=== PATIENT | female | born 1985 | race Caucasian/White ===

== ENCOUNTER 2022-10-10 10:00 | Observation (INO) | payer OTHER ==
[2022-10-10] MEDS ORDERED: NALOXONE 0.4 MG/ML 1 ML VIAL IVP PRN (10:11)
[2022-10-10] MEDS ORDERED: cefTRIAXone IN SWFI 1,000 MG/10 ML SYRINGE IVP STA (10:12)
--- NOTE | 2022-10-10 10:15 | ED ---
General Adult HPI - General Chief complaint: Overdose Stated complaint: Overdose Time Seen by Provider: 10/10/22 10:00 Source: patient, RN notes reviewed, old records reviewed Mode of arrival: EMS - History of Present Illness Initial comments: This is a 37-year-old female who presents emergency Department from [facility]. Patient was there get off heroin however patient had decreased responsiveness she was arousable and protecting her airway but she immediately fall back to sleep. Patient denies doing heroin recently. EMS did not give her any Narcan nor did the facility. Patient also complains of right first toe infection. Patient denies any fever chills per patient denies any abdominal pain patient denies any chest pain difficulty breathing shortness of breath. Patient denies any nausea vomiting. - Related Data Home Medications Medication Instructions Recorded Confirmed Unable To Assess [Unable to Assess] 10/10/22 10/10/22 Allergies Allergy/AdvReac Type Severity Reaction Status Date / Time Unable to Assess Allergy Verified 10/10/22 11:52 Review of Systems ROS Statement: Those systems with pertinent positive or pertinent negative responses have been documented in the HPI. ROS Other: All systems not noted in ROS Statement are negative. Past Medical History Past Medical History: Unable to Obtain History of Any Multi-Drug Resistant Organisms: Unobtainable Past Surgical History: Unable to Obtain Past Psychological History: Unable to Obtain Smoking Status: Unknown if ever smoked Past Alcohol Use History: Unable to Obtain Past Drug Use History: Unable to Obtain General Exam - General Exam Comments Initial Comments: GENERAL: Patient is well-developed and well-nourished. Patient is nontoxic and well- hydrated and is in no acute distress. Patient is very fatigued ENT: Neck is soft and supple. No significant lymphadenopathy is noted. Oropharynx is clear. Moist mucous membranes. Neck has full range of motion without eliciting any pain. EYES: The sclera were anicteric and conjunctiva were pink and moist. Extraocular movements were intact and pupils were equal round and reactive to light. Eyelids were unremarkable. PULMONARY: Unlabored respirations. Good breath sounds bilaterally. No audible rales rhonchi or wheezing was noted. CARDIOVASCULAR: There is a regular rate and rhythm without any murmurs gallops or rubs. ABDOMEN: Soft and nontender with normal bowel sounds. SKIN: Patient has a ruptured paronychia on the left first toe is tender to palpation. Patient also has a small abrasion that looks mildly infected with erythema around it but no fluctuance. This lesion is on the left lower lateral leg NEUROLOGIC: Patient is alert and oriented x3. Cranial nerves II through XII are grossly intact. Motor and sensory are also intact. Normal speech, volume and content. Symmetrical smile. MUSCULOSKELETAL: Normal extremities with adequate strength and full range of motion. No lower extremity swelling or edema. No calf tenderness. LYMPHATICS: No significant lymphadenopathy is noted PSYCHIATRIC: Difficult to assess secondary to the patient's decreased responsiveness Course Vital Signs 10/10/22 10/10/22 10/10/22 10:02 10:18 10:22 Temperature 97.6 F Pulse Rate 61 77 Respiratory 17 14 17 Rate Blood Pressure 87/64 90/56 O2 Sat by Pulse 100 95 Oximetry 10/10/22 10/10/22 12:43 13:53 Temperature Pulse Rate 66 Respiratory 16 18 Rate Blood Pressure 122/79 O2 Sat by Pulse 97 Oximetry Medical Decision Making - Medical Decision Making EKG as interpreted by myself and shows a sinus rhythm at 60 bpm MI interval 160 QRS is 92 QT interval 445 QTC is 446. Patient's EKG shows no ST segment elevation or depression. Was pt. sent in by a medical professional or institution (, PA, LICENSED SALES PRODUCER, urgent care, hospital, or fdc...) When possible be specific @ -Patient was sent in by [facility] Did you speak to anyone other than the patient for history (EMS, parent, family, police, friend...)? What history was obtained from this source @ -EMS gave all of the history Did you review nursing and triage notes (agree or disagree)? Why? @ -I reviewed and agree with nursing and triage notes Were old charts reviewed (outside hosp., previous admission, EMS record, old EKG, old radiological studies, urgent care reports/EKG's, fdc records)? Report findings @ -No old charts were reviewed Differential Diagnosis (chest pain, altered mental status, abdominal pain women, abdominal pain men, vaginal bleeding, weakness, fever, dyspnea, syncope, headache, dizziness, GI bleed, back pain, seizure, CVA, palpatations, mental health, musculoskeletal)? @ -Differential Altered Mental Status: Hypoglycemia, DKA, hypercapnia, ETOH, overdose, CO poisoning, trauma, myxedema coma, HTN encephalopathy, infection, encephalitis, psychosis, intercranial hemorrhage, hepatic encephalopathy, meningitis, CVA, this is not meant to be an all-inclusive list EKG interpreted by me (3pts min.). @ -As above X-rays interpreted by me (1pt min.). @ -Chest x-ray shows no acute abnormality CT interpreted by me (1pt min.). @ -Either brain shows no acute abnormality U/S interpreted by me (1pt. min.). @ -None done What testing was considered but not performed or refused? (CT, X-rays, U/S, labs)? Why? @ -None What meds were considered but not given or refused? Why? @ -None Did you discuss the management of the patient with other professionals (professionals i.e. , PA, LICENSED SALES PRODUCER, lab, RT, psych nurse, social services, fence setter, teacher, hospital chief financial officer, case reviewer)? Give summary @ -I spoke with [facility] agreed to admit the patient Was smoking cessation discussed for >3mins.? @ -No Was critical care preformed (if so, how long)? @ -No Were there social determinants of health that impacted care today? How? (Homelessness, low income, unemployed, alcoholism, drug addiction, transportation, low edu. Level, literacy, decrease access to med. care, usp, rehab)? @ -No Was there de-escalation of care discussed even if they declined (Discuss DNR or withdrawal of care, Hospice)? DNR status @ -No What co-morbidities impacted this encounter? (DM, HTN, Smoking, COPD, CAD, Cancer, CVA, ARF, Chemo, Hep., AIDS, mental health diagnosis, sleep apnea, morbid obesity)? @ -None Was patient admitted / discharged? Hospital course, mention meds given and route , prescriptions, significant lab abnormalities, going to OR and other pertinent info. @ -The patient came in it was always arousable with sternal rub. Narcan was given and the patient's woke up and was much more agitated. Patient did vomit times one and patient was given Zofran. Lab work came back and showed the patient had opiates and cocaine and methamphetamine and benzodiazepines on board. Patient's CT of the brain was normal. Patient remained very tired throughout her ED stay however she was easily arousable and continued to maintain her airway throughout her duration emergency department. I spoke with [facility] hospitalist agreed to admit the patient admitted the patient and wrote admitting orders Undiagnosed new problem with uncertain prognosis? @ -No Drug Therapy requiring intensive monitoring for toxicity (Heparin, Nitro, Insulin, Cardizem)? @ -No Were any procedures done? @ -No Diagnosis/symptom? @ -Polypharmacy Acute, or Chronic, or Acute on Chronic? @ -Acute Uncomplicated (without systemic symptoms) or Complicated (systemic symptoms)? @ -Complicated Side effects of treatment? @ -No Exacerbation, Progression, or Severe Exacerbation? @ -No Poses a threat to life or bodily function? How? (Chest pain, USA, IA, pneumonia, PE, COPD, DKA, ARF, appy, cholecystitis, CVA, Diverticulitis, Homicidal, Suicidal, threat to staff... and all critical care pts) @ -Yes continued abuse of multiple illegal substances could potentially kill the patient Diagnosis/symptom? @ -Altered mental status Acute, or Chronic, or Acute on Chronic? @ -Acute Uncomplicated (without systemic symptoms) or Complicated (systemic symptoms)? @ -default Side effects of treatment? @ -none Exacerbation, Progression, or Severe Exacerbation] @ -no Poses a threat to life or bodily function? @ -no Diagnosis/symptom? @ -Paronychia Acute, or Chronic, or Acute on Chronic? @ -Acute Uncomplicated (without systemic symptoms) or Complicated (systemic symptoms)? @ -Uncomplicated Side effects of treatment? @ -none Exacerbation, Progression, or Severe Exacerbation] @ -no Poses a threat to life or bodily function? @ -no - Lab Data Result diagrams: 10/10/22 10:22 10/10/22 10:22 Lab Results 10/10/22 10/10/22 10/10/22 Range/Units 10:22 10:22 11:41 WBC 7.1 (3.8-10.6) k/uL RBC 4.09 (3.80-5.40) m/uL Hgb 12.4 (11.4-16.0) gm/dL Hct 35.3 (34.0-46.0) % MCV 86.1 (80.0-100.0) fL MCH 30.4 (25.0-35.0) pg MCHC 35.3 (31.0-37.0) g/dL RDW 12.6 (11.5-15.5) % Plt Count 219 (150-450) k/uL MPV 7.7 Neutrophils % 44 % Lymphocytes % 41 % Monocytes % 4 % Eosinophils % 8 % Basophils % 1 % Neutrophils # 3.1 (1.3-7.7) k/uL Lymphocytes # 2.9 (1.0-4.8) k/uL Monocytes # 0.3 (0-1.0) k/uL Eosinophils # 0.6 (0-0.7) k/uL Basophils # 0.0 (0-0.2) k/uL Sodium 141 (137-145) mmol/L Potassium 3.4 L (3.5-5.1) mmol/L Chloride 103 (98-107) mmol/L Carbon Dioxide 31 H (22-30) mmol/L Anion Gap 7 mmol/L BUN 6 L (7-17) mg/dL Creatinine 0.82 (0.52-1.04) mg/dL Est GFR (CKD-EPI)AfAm >90 (>60 ml/min/1.73 sqM) Est GFR (CKD-EPI)NonAf >90 (>60 ml/min/1.73 sqM) Glucose 99 (74-99) mg/dL Calcium 9.2 (8.4-10.2) mg/dL Total Bilirubin 0.5 (0.2-1.3) mg/dL AST 34 (14-36) U/L ALT 23 (4-34) U/L Alkaline Phosphatase 51 (38-126) U/L Total Protein 6.8 (6.3-8.2) g/dL Albumin 3.9 (3.5-5.0) g/dL Urine Opiates Screen Detected H (NotDetected) Ur Oxycodone Screen Not Detected (NotDetected) Urine Methadone Screen Not Detected (NotDetected) Ur Propoxyphene Screen Not Detected (NotDetected) Ur Barbiturates Screen Not Detected (NotDetected) U Tricyclic Antidepress Not Detected (NotDetected) Ur Phencyclidine Scrn Not Detected (NotDetected) Ur Amphetamines Screen Not Detected (NotDetected) U Methamphetamines Scrn Detected H (NotDetected) U Benzodiazepines Scrn Detected H (NotDetected) Urine Cocaine Screen Detected H (NotDetected) U Marijuana (THC) Screen Not Detected (NotDetected) Serum Alcohol mg/dL 10/10/22 Range/Units 13:55 WBC (3.8-10.6) k/uL RBC (3.80-5.40) m/uL Hgb (11.4-16.0) gm/dL Hct (34.0-46.0) % MCV (80.0-100.0) fL MCH (25.0-35.0) pg MCHC (31.0-37.0) g/dL RDW (11.5-15.5) % Plt Count (150-450) k/uL MPV Neutrophils % % Lymphocytes % % Monocytes % % Eosinophils % % Basophils % % Neutrophils # (1.3-7.7) k/uL Lymphocytes # (1.0-4.8) k/uL Monocytes # (0-1.0) k/uL Eosinophils # (0-0.7) k/uL Basophils # (0-0.2) k/uL Sodium (137-145) mmol/L Potassium (3.5-5.1) mmol/L Chloride (98-107) mmol/L Carbon Dioxide (22-30) mmol/L Anion Gap mmol/L BUN (7-17) mg/dL Creatinine (0.52-1.04) mg/dL Est GFR (CKD-EPI)AfAm (>60 ml/min/1.73 sqM) Est GFR (CKD-EPI)NonAf (>60 ml/min/1.73 sqM) Glucose (74-99) mg/dL Calcium (8.4-10.2) mg/dL Total Bilirubin (0.2-1.3) mg/dL AST (14-36) U/L ALT (4-34) U/L Alkaline Phosphatase (38-126) U/L Total Protein (6.3-8.2) g/dL Albumin (3.5-5.0) g/dL Urine Opiates Screen (NotDetected) Ur Oxycodone Screen (NotDetected) Urine Methadone Screen (NotDetected) Ur Propoxyphene Screen (NotDetected) Ur Barbiturates Screen (NotDetected) U Tricyclic Antidepress (NotDetected) Ur Phencyclidine Scrn (NotDetected) Ur Amphetamines Screen (NotDetected) U Methamphetamines Scrn (NotDetected) U Benzodiazepines Scrn (NotDetected) Urine Cocaine Screen (NotDetected) U Marijuana (THC) Screen (NotDetected) Serum Alcohol <10 mg/dL Disposition Clinical Impression: Paronychia, Polypharmacy, Altered mental status [facility] Referrals: None,Stated [Primary Care Provider] - 1-2 days Time of Disposition: 14:40
[2022-10-10] MEDS ORDERED: SODIUM CHLORIDE 0.9% 1,000 ML IV ONE ×2 (10:25→14:41)
[2022-10-10] MEDS ORDERED: ONDANSETRON 4 MG/2 ML VIAL IVP STA (10:25)
[2022-10-10 10:29] LABS: Basophils % (A) 1 %; Eosinophils # (A) 0.6 k/uL (0-0.7); Eosinophils % (A) 8 %; HCT 35.3 % (34.0-46.0); HGB 12.4 gm/dL (11.4-16.0); Lymphocytes # (A) 2.9 k/uL (1.0-4.8); Lymphocytes % (A) 41 %; MCH 30.4 pg (25.0-35.0); MCHC 35.3 g/dL (31.0-37.0); MCV 86.1 fL (80.0-100.0); Mean Platelet Volume 7.7; Monocytes # (A) 0.3 k/uL (0-1.0); Monocytes % (A) 4 %; Neutrophils # (A) 3.1 k/uL (1.3-7.7); Neutrophils % (A) 44 %; Platelet Count 219 k/uL (150-450); RBC 4.09 m/uL (3.80-5.40); RDW 12.6 % (11.5-15.5); WBC 7.1 k/uL (3.8-10.6)
[2022-10-10 10:49] LABS: ALT 23 U/L (4-34); AST 34 U/L (14-36); African American GFR (CKD) >90 (>60 ml/min/1.73 sqM); Albumin 3.9 g/dL (3.5-5.0); Alkaline Phosphatase 51 U/L (38-126); Anion Gap 7 mmol/L; Blood Urea Nitrogen 6 mg/dL (7-17); Calcium 9.2 mg/dL (8.4-10.2); Carbon Dioxide 31 mmol/L (22-30); Chloride 103 mmol/L (98-107); Glucose 99 mg/dL (74-99); Non-African American GFR(CKD) >90 (>60 ml/min/1.73 sqM); Potassium 3.4 mmol/L (3.5-5.1); Sodium 141 mmol/L (137-145); Total Bilirubin 0.5 mg/dL (0.2-1.3); Total Protein 6.8 g/dL (6.3-8.2)
--- NOTE | 2022-10-10 11:03 | XR ---
EXAMINATION TYPE: XR chest 1V portable DATE OF EXAM: 10/10/2022 10:50 AM COMPARISON: None TECHNIQUE: XR chest 1V portable Portable AP radiograph of the chest. CLINICAL INDICATION:Female, 37 years old with history of Short of breath; FINDINGS: Lungs/Pleura: There is no evidence of pleural effusion, focal consolidation, or pneumothorax. Pulmonary vascularity: Unremarkable. Heart/mediastinum: Cardiomediastinal silhouette is unremarkable. Musculoskeletal: No acute osseous pathology. IMPRESSION: No acute cardiopulmonary disease/process.
[2022-10-10 12:09] LABS: Benzodiazepines Screen,Urine Detected (NotDetected); Cocaine Screen,Urine Detected (NotDetected); Opiate Screen,Urine Detected (NotDetected); Phencyclidine Screen,Urine Not Detected (NotDetected); Urn Cannabinoid Scrn Not Detected (NotDetected)
[2022-10-10 12:10] LABS: Amphetamine Screen,Urine Not Detected (NotDetected); Barbiturate Screen,Urine Not Detected (NotDetected); Methadone Screen, Urine Not Detected (NotDetected); Oxycodone Screen, Urine Not Detected (NotDetected); Tricyclic Antidepressant,Urine Not Detected (NotDetected)
[2022-10-10] MEDS ORDERED: NALOXONE 0.4 MG/ML 1 ML VIAL IVP STA (12:27)
--- NOTE | 2022-10-10 13:32 | CT ---
EXAMINATION TYPE: CT brain wo con CT DLP: 1039.4 mGycm, Automated exposure control for dose reduction was used. DATE OF EXAM: 10/10/2022 1:24 PM COMPARISON: None. CLINICAL INDICATION:Female, 37 years old with history of Altered mental status, Overdose TECHNIQUE: Brain: Multiple axial CT images of the brain were obtained without IV contrast. Coronal and sagittal reformats reviewed. FINDINGS: Brain: Extra-axial spaces: No abnormal extra-axial fluid collections. Ventricular system: Within normal limits Cerebral parenchyma: No acute intraparenchymal hemorrhage or mass effect. The faith-white junction is well differentiated. Cerebellum: Unremarkable. Mass effect: No evidence of midline shift. Intracranial vasculature: unremarkable Soft tissues: Normal. Calvarium/osseous structures: No depressed skull fracture. Paranasal sinuses and mastoid air cells: The mastoid air cells are clear. Mild mucosal thickening of the right ethmoid sinus and maxillary sinus. Visualized orbits: Orbital contents are intact. IMPRESSION: No acute intracranial process.
[2022-10-10] MEDS ORDERED: Potassium Replacement Protocol 1 EACH MISC MISCELLANE PRN (20:38)
[2022-10-10] MEDS: POTASSIUM CHLORIDE 10 MEQ in WATER FOR INJECTION 1 100ML.BAG IVPB SCH (23:49)
[2022-10-10] MEDS: SULFAMETHOX-TMP 800-160MG 1 EACH TAB PO SCH (23:50)
[2022-10-10] MEDS: CEPHALEXIN 500 MG CAP PO SCH ×2 (23:51→23:52)
[2022-10-11] MEDS: POTASSIUM CHLORIDE 10 MEQ in WATER FOR INJECTION 1 100ML.BAG IVPB SCH ×3 (00:20→00:54)
[2022-10-11] MEDS: POTASSIUM CHLORIDE ER 20 MEQ TAB.ER PO SCH ×4 (00:56→12:32)
[2022-10-11] MEDS: ACETAMINOPHEN TAB 500 MG TAB PO PRN (02:13)
[2022-10-11] MEDS: SULFAMETHOX-TMP 800-160MG 1 EACH TAB PO SCH (09:19)
[2022-10-11] MEDS: CEPHALEXIN 500 MG CAP PO SCH ×3 (09:19→17:26)
--- NOTE | 2022-10-11 20:56 | P.HPIM ---
History of Present Illness H&P Date: 10/10/22 Chief Complaint: Polysubstance overdose 37-year-old female who presents emergency Department from [facility]. Patient was there get off heroin however patient had decreased responsiveness she was arousable and protecting her airway but she immediately fall back to sleep. Patient denies doing heroin recently. EMS did not give her any Narcan nor did the facility. Patient also complains of right first toe infection. Patient denies any fever chills per patient denies any abdominal pain patient denies any chest pain difficulty breathing shortness of breath. Patient denies any nausea vomiting. In the ED patient was found to be arousable with sternal rub. Narcan was given and the patient's woke up and was much more agitated. Patient did vomit times one and patient was given Zofran. Lab work came back and showed the patient had opiates and cocaine and methamphetamine and benzodiazepines on board. Patient's CT of the brain was normal. Patient remained very tired throughout her ED stay however she was easily arousable and continued to maintain her airway throughout her duration emergency department. Review of Systems REVIEW OF SYSTEMS: CONSTITUTIONAL: No fever, no malaise, no fatigue. HEENT: No recent visual problems or hearing problems. Denied any sore throat. CARDIOVASCULAR: No chest pain, orthopnea, PND, no palpitations, no syncope. PULMONARY: No shortness of breath, no cough, no hemoptysis. GASTROINTESTINAL: No diarrhea, no nausea, no vomiting, no abdominal pain. NEUROLOGICAL: No headaches, no weakness, no numbness. HEMATOLOGICAL: Denies any bleeding or petechiae. GENITOURINARY: Denies any burning micturition, frequency, or urgency. MUSCULOSKELETAL/RHEUMATOLOGICAL: Denies any joint pain, swelling, or any muscle pain. ENDOCRINE: Denies any polyuria or polydipsia. The rest of the 14-point review of systems is negative. Past Medical History Past Medical History: Unable to Obtain History of Any Multi-Drug Resistant Organisms: Unobtainable Past Surgical History: Unable to Obtain Past Psychological History: Unable to Obtain Smoking Status: Unknown if ever smoked Past Alcohol Use History: Unable to Obtain Past Drug Use History: Unable to Obtain Medications and Allergies Home Medications Medication Instructions Recorded Confirmed Type Cephalexin [Keflex] 500 mg PO DIRECTED 10/10/22 10/10/22 History Allergies Allergy/AdvReac Type Severity Reaction Status Date / Time No Known Allergies Allergy Verified 10/10/22 18:53 Physical Exam Vitals: Vital Signs Temp Pulse Resp BP Pulse Ox 10/10/22 13:53 66 18 122/79 97 10/10/22 12:43 16 10/10/22 10:22 77 17 90/56 95 10/10/22 10:18 14 10/10/22 10:02 97.6 F 61 17 87/64 100 Intake and Output 10/09/22 10/10/22 10/10/22 22:59 06:59 14:59 Other: Weight 68.039 kg - Constitutional General appearance: Present: average body habitus, cooperative, no acute distress - EENT Eyes: Present: anicteric sclerae, EOMI, PERRLA, normal appearance ENT: Present: hearing grossly normal, normal oropharynx Ears: bilateral: normal - Neck Neck: Present: normal ROM. Absent: lymphadenopathy, rigidity, thyromegaly Carotids: negative: bruit present Thyroid: bilateral: normal size, negative: enlarged, nodule - Respiratory Respiratory: bilateral: CTA, negative: rales, rhonchi, wheezing - Cardiovascular Rhythm: regular Heart sounds: normal: S1, S2 Abnormal Heart Sounds: Absent: systolic murmur, diastolic murmur - Gastrointestinal General gastrointestinal: Present: normal bowel sounds, soft. Absent: d istended, organomegaly, tenderness - Genitourinary Genitourinary Comment(s): deferred - Integumentary Integumentary: Present: normal turgor. Absent: jaundiced, rash, ulcer - Neurologic Neurologic: Present: CNII-XII intact. Absent: focal deficits - Musculoskeletal Musculoskeletal: Present: gait normal, strength equal bilaterally - Psychiatric Psychiatric: Present: A&O x's 3, appropriate affect, intact judgment & insight Results CBC & Chem 7: 10/10/22 10:22 10/11/22 04:53 Labs: Abnormal Lab Results - Last 24 Hours (Table) 10/10/22 10/10/22 Range/Units 10:22 11:41 Potassium 3.4 L (3.5-5.1) mmol/L Carbon Dioxide 31 H (22-30) mmol/L BUN 6 L (7-17) mg/dL Urine Opiates Screen Detected H (NotDetected) U Methamphetamines Scrn Detected H (NotDetected) U Benzodiazepines Scrn Detected H (NotDetected) Urine Cocaine Screen Detected H (NotDetected) Assessment and Plan Assessment: 1. Altered mental status -- Substance abuse; urine drug screen is positive for opiates, methamphetamine, benzodiazepines and cocaine - Patient has been placed on IV fluids; CIWA protocol with Ativan -- Continue with neuro checks -- Plan to consult neurology if mental status doesn't improve 2. Hypokalemia; potassium at 3.4 in ED; supplemented with oral potassium; we will monitor electrolytes closely and supplement as needed 3. Pain redness related toe/ paronychia; patient received 1 dose of IV Rocephin and has been placed on Keflex 500 mg 4 times a day DVT prophylaxis; SCDs CODE STATUS; full code
[2022-10-11] MEDS: ONDANSETRON 4 MG/2 ML VIAL IVP PRN (21:26)
[2022-10-12] MEDS: SULFAMETHOX-TMP 800-160MG 1 EACH TAB PO SCH ×3 (00:15→20:58)
[2022-10-12] MEDS: FAMOTIDINE 20 MG TAB PO SCH ×3 (00:15→20:58)
[2022-10-12] MEDS: ACETAMINOPHEN TAB 500 MG TAB PO PRN (00:15)
[2022-10-12] MEDS: DIPHENOX-ATROP 2.5-0.025 MG 1 EACH TAB PO PRN ×3 (00:16→18:47)
[2022-10-12] MEDS: CEPHALEXIN 500 MG CAP PO SCH ×5 (00:16→20:58)
[2022-10-12] MEDS: MELATONIN 5 MG TABLET PO SCH ×2 (00:21→20:58)
[2022-10-12] MEDS: POTASSIUM CHLORIDE ER 20 MEQ TAB.ER PO SCH ×2 (03:05→04:21)
--- NOTE | 2022-10-12 11:28 | P.PN ---
Subjective Progress Note Date: 10/11/22 37-year-old female who presents emergency Department from [facility]. Patient was there get off heroin however patient had decreased responsiveness she was arousable and protecting her airway but she immediately fall back to sleep. Patient denies doing heroin recently. EMS did not give her any Narcan nor did the facility. Patient also complains of right first toe infection. Patient denies any fever chills per patient denies any abdominal pain patient denies any chest pain difficulty breathing shortness of breath. Patient denies any nausea vomiting. In the ED patient was found to be arousable with sternal rub. Narcan was given and the patient's woke up and was much more agitated. Patient did vomit times one and patient was given Zofran. Lab work came back and showed the patient had opiates and cocaine and methamphetamine and benzodiazepines on board. Patient's CT of the brain was normal. Patient remained very tired throughout her ED stay however she was easily arousable and continued to maintain her airway throughout her duration emergency department. Objective - Vital Signs Vital signs: Vital Signs Temp 98.5 F 10/11/22 11:43 Pulse 75 10/11/22 11:43 Resp 20 10/11/22 11:43 BP 104/65 10/11/22 11:43 Pulse Ox 96 10/11/22 11:43 FiO2 Intake & Output 10/10/22 10/11/22 10/11/22 18:59 06:59 18:59 Weight 68.039 kg Other: Voiding Method Toilet Toilet # Voids 0 2 - Exam General appearance: Present: average body habitus, cooperative, no acute distress Eyes: Present: anicteric sclerae, EOMI, PERRLA, normal appearance Neck: Present: normal ROM. Absent: lymphadenopathy, rigidity, thyromegaly Respiratory: bilateral: CTA, negative: rales, rhonchi, wheezing Cardiovascular: regular; normal: S1, S2 Gastrointestinal: normal bowel sounds, soft. Absent: distended, organomegaly, tenderness Genitourinary Comment(s): deferred Integumentary: Present: normal turgor. Absent: jaundiced, rash, ulcer Neurologic: Present: CNII-XII intact. Absent: focal deficits Musculoskeletal: Present: gait normal, strength equal bilaterally Psychiatric: Present: A&O x's 3, appropriate affect, intact judgment & insight - Labs CBC & Chem 7: 10/10/22 10:22 10/11/22 22:27 Labs: Abnormal Lab Results - Last 24 Hours (Table) 10/11/22 Range/Units 04:53 Potassium 3.4 L (3.5-5.1) mmol/L Assessment and Plan Assessment: 1. Altered mental status -- Substance abuse; urine drug screen is positive for opiates, methamphetamine, benzodiazepines and cocaine - Patient has been placed on IV fluids; CIWA protocol with Ativan -- Continue with neuro checks -- Plan to consult neurology if mental status doesn't improve 2. Hypokalemia; potassium at 3.4 in ED; supplemented with oral potassium; we will monitor electrolytes closely and supplement as needed 3. Pain redness related toe/ paronychia; patient received 1 dose of IV Rocephin and has been placed on Keflex 500 mg 4 times a day DVT prophylaxis; SCDs CODE STATUS; full code
[2022-10-12] MEDS: ONDANSETRON 4 MG/2 ML VIAL IVP PRN ×2 (11:33→16:14)
[2022-10-12 13:21] LABS: Basophils # (A) 0.03 X 10*3/uL (0.00-0.10); Basophils % (A) 0.4 %; Eosinophils # (A) 0.31 X 10*3/uL (0.04-0.35); Eosinophils % (A) 3.7 %; HCT 30.7 % (37.2-46.3); HGB 10.3 d/dL (12.0-15.0); Lymphocytes # (A) 3.52 X 10*3/uL (0.90-5.00); Lymphocytes % (A) 42.1 %; MCH 29.5 pg (27.0-32.0); MCHC 33.6 d/dL (32.0-37.0); Mean Platelet Volume 10.4 FL (9.5-12.2); Monocytes # (A) 0.42 X 10*3/uL (0.20-1.00); NRBC Per 100 WBC 0 X 10*3/uL (0.00-0.01); Neutrophils # (A) 4.07 X 10*3/uL (1.80-7.70); Neutrophils % (A) 48.6 %; Platelet Count 214 X 10*3/uL (140-440); RBC 3.49 X 10*6/uL (4.10-5.20); RDW 12.2 % (11.5-14.5); WBC 8.37 X 10*3/uL (4.50-10.00)
[2022-10-12 13:29] LABS: BUN/Creat Ratio <5.00 Ratio (12.00-20.00); Blood Urea Nitrogen <3.5 mg/dL (9.0-27.0); Calcium 8.7 mg/dL (8.7-10.3); Carbon Dioxide 23.7 mmol/L (21.6-31.8); Chloride 111 mmol/L (96-109); Glucose 86 mg/dL (70-110); Potassium 3.7 mmol/L (3.5-5.5); Sodium 143 mmol/L (135-145)
[2022-10-12] MEDS ORDERED: IOPAMIDOL CONTRAST (ORAL USE) VIAL PO PRN (15:53)
--- NOTE | 2022-10-12 18:12 | CT ---
EXAMINATION TYPE: CT abdomen pelvis wo/w con CT DLP: 1061.6 mGycm, Automated exposure control for dose reduction was used. DATE OF EXAM: 10/12/2022 6:02 PM COMPARISON: None CLINICAL INDICATION:Female, 37 years old with history of pelvic mass; Rectal mass x6mo. TECHNIQUE: Axial CT of the abdomen and pelvis with and without IV contrast. Sagittal and coronal ref ormats were created on a separate workstation. Contrast used:100 ml mL of Isovue 300 with IV Contrast, (none if empty) Oral contrast used: with Oral Contrast (none if empty) FINDINGS: LOWER CHEST: Unremarkable ABDOMEN LIVER: Focal fatty infiltration adjacent to the falciform ligament in segment IVb GALLBLADDER AND BILE DUCTS: The gallbladder surgically absent. PANCREAS: Unremarkable. SPLEEN: Unremarkable. ADRENAL GLANDS: Unremarkable. KIDNEYS AND URETERS: No evidence of hydronephrosis or renal calculus. The ureters are unremarkable. PELVIS BLADDER: Unremarkable REPRODUCTIVE: Unremarkable. ABDOMEN & PELVIS STOMACH AND BOWEL: No evidence of bowel obstruction. No evidence of mass in the abdomen pelvis or rig ht rectal region. PERITONEUM/RETROPERITONEUM: No evidence of pneumoperitoneum or free fluid. VASCULATURE: No evidence of aortic aneurysm. MUSCULOSKELETAL: No acute osseous abnormalities LYMPH NODES: No gross evidence for lymphadenopathy. SOFT TISSUE/ABDOMINAL WALL: Unremarkable IMPRESSION: No evidence for rectal mass, no acute intra-abdominal process.
--- NOTE | 2022-10-12 20:37 | P.PN ---
Subjective Progress Note Date: 10/12/22 37-year-old female who presents emergency Department from [facility]. Patient was there get off heroin however patient had decreased responsiveness she was arousable and protecting her airway but she immediately fall back to sleep. Patient denies doing heroin recently. EMS did not give her any Narcan nor did the facility. Patient also complains of right first toe infection. Patient denies any fever chills per patient denies any abdominal pain patient denies any chest pain difficulty breathing shortness of breath. Patient denies any nausea vomiting. In the ED patient was found to be arousable with sternal rub. Narcan was given and the patient's woke up and was much more agitated. Patient did vomit times one and patient was given Zofran. Lab work came back and showed the patient had opiates and cocaine and methamphetamine and benzodiazepines on board. Patient's CT of the brain was normal. Patient remained very tired throughout her ED stay however she was easily arousable and continued to maintain her airway throughout her duration emergency department. 10/12/2022 Patient is seen and evaluated and discussed with nursing staff; patient has been reporting that she feels like it is a mass in the pelvis which she needs to have back by her finger in her vagina before each bowel movement Vital signs are stable with temperature of 98, pulse 62, respiration 15 and and blood pressure 123/74 -- No abdominal or pelvic masses palpable on physical examination WBC of 8.3, hemoglobin of 10.3, sodium of 143, potassium 3.7, BUN/creatinine of 20.5/0.7 -- We will hold off on discharge and order a CT of the abdomen and pelvis with and without contrast Objective - Vital Signs Vital signs: Vital Signs Temp 98.7 F 10/12/22 12:00 Pulse 69 10/12/22 12:00 Resp 14 10/12/22 12:00 BP 115/74 10/12/22 12:00 Pulse Ox 100 10/12/22 12:00 FiO2 Intake & Output 10/12/22 10/12/22 10/13/22 06:59 18:59 06:59 Intake Total 1200 Balance 1200 Intake: Intake, IV Titration 1200 Amount Sodium Chloride 0.9% 1, 1200 000 ml @ 100 mls/hr IV . Q10H ONE Rx#:[id number] Other: Voiding Method Toilet Toilet # Voids 2 - Exam General appearance: Present: average body habitus, cooperative, no acute distress Eyes: Present: anicteric sclerae, EOMI, PERRLA, normal appearance Neck: Present: normal ROM. Absent: lymphadenopathy, rigidity, thyromegaly Respiratory: bilateral: CTA, negative: rales, rhonchi, wheezing Cardiovascular: regular; normal: S1, S2 Gastrointestinal: normal bowel sounds, soft. Absent: distended, organomegaly, tenderness Genitourinary Comment(s): deferred Integumentary: Present: normal turgor. Absent: jaundiced, rash, ulcer Neurologic: Present: CNII-XII intact. Absent: focal deficits Musculoskeletal: Present: gait normal, strength equal bilaterally Psychiatric: Present: A&O x's 3, appropriate affect, intact judgment & insight - Labs CBC & Chem 7: 10/12/22 07:20 10/12/22 07:20 Labs: Abnormal Lab Results - Last 24 Hours (Table) 10/12/22 10/12/22 Range/Units 07:20 07:20 RBC 3.49 L (4.10-5.20) X 10*6/uL Hgb 10.3 L (12.0-15.0) d/dL Hct 30.7 L (37.2-46.3) % Chloride 111 H (96-109) mmol/L BUN <3.5 L (9.0-27.0) mg/dL BUN/Creatinine Ratio <5.00 L (12.00-20.00) Ratio Assessment and Plan Assessment: 1. Altered mental status -- Substance abuse; urine drug screen is positive for opiates, methamphetamine, benzodiazepines and cocaine - Patient has been placed on IV fluids; CIWA protocol with Ativan -- Continue with neuro checks -- Plan to consult neurology if mental status doesn't improve 2. Hypokalemia; potassium at 3.4 in ED; supplemented with oral potassium; we will monitor electrolytes closely and supplement as needed 3. Pain redness related toe/ paronychia; patient received 1 dose of IV Rocephin and has been placed on Keflex 500 mg 4 times a day DVT prophylaxis; SCDs CODE STATUS; full code
[2022-10-13] MEDS: ONDANSETRON 4 MG/2 ML VIAL IVP PRN ×2 (02:12→08:30)
[2022-10-13] MEDS: DIPHENOX-ATROP 2.5-0.025 MG 1 EACH TAB PO PRN (02:18)
[2022-10-13] MEDS: CEPHALEXIN 500 MG CAP PO SCH ×2 (08:30→13:03)
[2022-10-13] MEDS: FAMOTIDINE 20 MG TAB PO SCH (08:30)
[2022-10-13] MEDS: SULFAMETHOX-TMP 800-160MG 1 EACH TAB PO SCH (08:30)
[2022-10-13 08:44] LABS: BUN/Creat Ratio <5.00 Ratio (12.00-20.00); Blood Urea Nitrogen <3.5 mg/dL (9.0-27.0); Calcium 8.9 mg/dL (8.7-10.3); Carbon Dioxide 23.3 mmol/L (21.6-31.8); Chloride 108 mmol/L (96-109); Glucose 101 mg/dL (70-110); Potassium 3.4 mmol/L (3.5-5.5); Sodium 141 mmol/L (135-145)
[2022-10-13 12:04] VITALS: BP 100/62; PULSE 71; RESP 18; TEMP 98
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
== END 2022-10-13 14:22 | disposition home or self-care (01) ==
LOC: EC 10:00 → INTOOBSV 14:41 → 4SSUR 14:41 → 5NMEDONC 16:50 → UNDODISIN 10-13 14:22
PROVIDERS: ADMIT Hospitalist; ATTEND Hospitalist
DX: R41.82 Altered mental status, unspecified (principal); F11.10 Opioid abuse, uncomplicated; F13.10 Sedative, hypnotic or anxiolytic abuse, uncomplicated; F14.10 Cocaine abuse, uncomplicated; F15.10 Other stimulant abuse, uncomplicated; L03.032 Cellulitis of left toe; E87.6 Hypokalemia; K62.89 Other specified diseases of anus and rectum
CPT/HCPCS: 96376 ×4; 96361 ×2; 96374; 96375; 99285; 36415; 93005; 80053; 80048 ×2; 84132; 85025 ×2; 80306; 71045; 70450; 74178; G0378 ×5; G0480; J2310; J2405 ×4; J0696; Q9967; 80320

== ENCOUNTER 2024-02-05 11:58 | Inpatient (IN) | payer OTHER ==
[2024-02-05 12:38] LABS: Basophils % (A) 0 %; Eosinophils # (A) 0.1 k/uL (0-0.7); Eosinophils % (A) 1 %; HCT 36.2 % (34.0-46.0); HGB 12.5 gm/dL (11.4-16.0); Lymphocytes # (A) 1.5 k/uL (1.0-4.8); Lymphocytes % (A) 19 %; MCH 29.8 pg (25.0-35.0); MCHC 34.4 g/dL (31.0-37.0); MCV 86.4 fL (80.0-100.0); Mean Platelet Volume 7.1; Monocytes # (A) 0.3 k/uL (0-1.0); Monocytes % (A) 3 %; Neutrophils % (A) 75 %; Platelet Count 274 k/uL (150-450); RBC 4.19 m/uL (3.80-5.40); RDW 12.5 % (11.5-15.5); WBC 7.9 k/uL (3.8-10.6)
[2024-02-05 12:47] LABS: Lactic Acid, Venous 1.2 mmol/L (0.7-2.0)
[2024-02-05] MEDS: SODIUM CHLORIDE 0.9% 1,000 ML IV ONE (12:47)
[2024-02-05 12:48] LABS: ALT 16 U/L (4-34); AST 21 U/L (14-36); Acetaminophen <10.0 ug/mL; African American GFR (CKD) >90 (>60 ml/min/1.73 sqM); Albumin 4.1 g/dL (3.5-5.0); Alcohol <10 mg/dL; Alkaline Phosphatase 76 U/L (38-126); Anion Gap 6 mmol/L; Blood Urea Nitrogen 9 mg/dL (7-17); Calcium 9.1 mg/dL (8.4-10.2); Carbon Dioxide 20 mmol/L (22-30); Chloride 111 mmol/L (98-107); Glucose 130 mg/dL (74-99); Non-African American GFR(CKD) >90 (>60 ml/min/1.73 sqM); Potassium 3.9 mmol/L (3.5-5.1); Salicylate <1.0 mg/dL; Sodium 137 mmol/L (137-145); Total Bilirubin 0.7 mg/dL (0.2-1.3); Total Protein 7.1 g/dL (6.3-8.2)
[2024-02-05] MEDS: LORazepam 2 MG/ML INJ IV STA (12:48)
--- NOTE | 2024-02-05 12:50 | ED ---
General Adult HPI - General Chief complaint: Recheck/Abnormal Lab/Rx Stated complaint: swelling Time Seen by Provider: 02/05/24 12:10 Source: patient, RN notes reviewed, old records reviewed Mode of arrival: EMS Limitations: no limitations - History of Present Illness Initial comments: Is a 38-year-old female who presents emergency department for somewhat altered mental status. Reportedly may have a history of seizure disorder. Is currently at [facility] for benzodiazepine and heroin abuse. States she feels like her tongue and face are swollen. No noted swelling on exam. She is slow to respond to questions. States this has happened previously when she was told she was having a seizure. She is not on any seizure medications on a regular basis. Does have a history of the polysubstance abuse. Denies any other acute complaints at this time other than the mild fatigue and slow response to questions. Presents for further evaluation. Denies chest pain or shortness of breath. Denies abdominal pain, nausea, vomiting.[facility] reportedly is concerned that she may have taken a illicit substance. - Related Data Home Medications Medication Instructions Recorded Confirmed Acetaminophen Tab [Tylenol] 650 mg PO Q4H 02/05/24 02/05/24 Calcium Phos/D3/Magnesium/Zinc 1 tab PO TID PRN 02/05/24 02/05/24 [Zvsxlud-Ttt-Voum-Vitamin D3] Chlorpheniramine Maleate 4 mg PO Q4H PRN 02/05/24 02/05/24 [Chlor-Trimeton] Docusate [Colace] 100 mg PO BID PRN 02/05/24 02/05/24 Hyoscyamine Sulfate [Levsin] 0.125 mg PO QID PRN 02/05/24 02/05/24 Ibuprofen [Motrin Ib] 600 mg PO Q6H PRN 02/05/24 02/05/24 Loperamide [Imodium] 4 mg PO QID PRN 02/05/24 02/05/24 Multivitamins, Thera [Multivitamin 1 tab PO DAILY 02/05/24 02/05/24 (formulary)] Mylanta 30 ml PO Q4H PRN 02/05/24 02/05/24 Thiamine [Vitamin B-1] 100 mg PO DAILY 02/05/24 02/05/24 cloNIDine HCL [Catapres] 0.1 mg PO Q4H PRN 02/05/24 02/05/24 ondansetron HCL [Zofran] 8 mg PO Q6H PRN 02/05/24 02/05/24 traZODone HCL [Desyrel] 50 - 150 mg PO HS PRN 02/05/24 02/05/24 Allergies Allergy/AdvReac Type Severity Reaction Status Date / Time pineapple Allergy Unknown Verified 02/05/24 15:45 Review of Systems ROS Statement: Those systems with pertinent positive or pertinent negative responses have been documented in the HPI. Review of Systems: CONST: Denies fever EYES: Denies blurry vision ENT: Denies nasal congestion C/V: Denies Chest pain RESP: Denies shortness of breath GI: Denies abdominal pain : Denies dysuria SKIN: Denies rash. MSK: Denies joint pain. NEURO: Endorses weakness ROS Other: All systems not noted in ROS Statement are negative. Past Medical History Past Medical History: Unable to Obtain Additional Past Medical History / Comment(s): heroin addiction, also cocaine, meth, benzo and opiate abuse; hypotension, left great toe infection History of Any Multi-Drug Resistant Organisms: Unobtainable Past Surgical History: Unable to Obtain Additional Past Surgical History / Comment(s): x 3 Past Anesthesia/Blood Transfusion Reactions: No Reported Reaction Past Psychological History: Unable to Obtain Smoking Status: Unknown if ever smoked Past Alcohol Use History: Unable to Obtain Past Drug Use History: Unable to Obtain General Exam - General Exam Comments Initial Comments: General: Appears in no acute distress. HEAD: Normal with no signs of head trauma. EYES: PERRLA, EOMI, conjunctiva normal, no discharge. 3 mm and equal bilaterally. ENT: Hearing grossly intact, normal oropharynx. RESPIRATORY: Clear breath sounds bilaterally. No wheezes, rales, or rhonchi. C/V: Regular rate and rhythm. S1 and S2 auscultated, no edema, peripheral pulses 2+ and intact throughout ABD: Abd is soft, nontender, nondistended EXT: Normal range of motion, no obvious deformity SKIN: No rashes or lesions observed on exposed skin. NEURO: Alert and oriented x 4. Cranial nerves II-XII intact. No focal sensory or strength deficits. Is slightly slow to respond to questions but is acting appropriately. NIH is 0. Limitations: no limitations Course Vital Signs 02/05/24 02/05/24 02/05/24 12:01 15:44 16:33 Temperature 98.7 F 99.9 F H Pulse Rate 84 49 L 50 L Respiratory 20 18 18 Rate Blood Pressure 142/84 112/87 132/78 O2 Sat by Pulse 99 98 98 Oximetry Medical Decision Making - Medical Decision Making Was pt. sent in by a medical professional or institution (, PA, STEREO EQUIPMENT INSTALLER, urgent care, hospital, or jail...) When possible be specific @ -Sent from [facility] for further evaluation. Did you speak to anyone other than the patient for history (EMS, parent, family, police, friend...)? What history was obtained from this source @ -No Did you review nursing and triage notes (agree or disagree)? Why? @ -I reviewed and agree with nursing and triage notes Were old charts reviewed (outside hosp., previous admission, EMS record, old EKG, old radiological studies, urgent care reports/EKG's, jail records)? Report findings @ -Reviewed paperwork from [facility] which did reveal that they are concerned that the patient may have taken an illicit substance. Differential Diagnosis (chest pain, altered mental status, abdominal pain women, abdominal pain men, vaginal bleeding, weakness, fever, dyspnea, syncope, headache, dizziness, GI bleed, back pain, seizure, CVA, palpatations, mental health, musculoskeletal)? @ -Differential Altered Mental Status: Hypoglycemia, DKA, hypercapnia, ETOH, overdose, CO poisoning, trauma, myxedema coma, HTN encephalopathy, infection, encephalitis, psychosis, intercranial hemorrhage, hepatic encephalopathy, meningitis, CVA, this is not meant to be an all-inclusive list EKG interpreted by me (3pts min.). @ -As above X-rays interpreted by me (1pt min.). @ -Chest x-ray reveals no obvious acute cardiopulmonary process. CT interpreted by me (1pt min.). @ -CT brain reveals no obvious acute intracranial process or injury. U/S interpreted by me (1pt. min.). @ -None done What testing was considered but not performed or refused? (CT, X-rays, U/S, labs)? Why? @ -None What meds were considered but not given or refused? Why? @ -None Did you discuss the management of the patient with other professionals (professionals i.e. , PA, STEREO EQUIPMENT INSTALLER, lab, RT, psych nurse, social media assistant, biomaterials engineer, teacher, correction officer supervisor, nurse outreach case manager)? Give summary @ -No Was smoking cessation discussed for >3mins.? @ -No Was critical care preformed (if so, how long)? @ -No Were there social determinants of health that impacted care today? How? (Homelessness, low income, unemployed, alcoholism, drug addiction, transportation, low edu. Level, literacy, decrease access to med. care, usp, rehab)? @ -No Was there de-escalation of care discussed even if they declined (Discuss DNR or withdrawal of care, Hospice)? DNR status @ -No What co-morbidities impacted this encounter? (DM, HTN, Smoking, COPD, CAD, Cancer, CVA, ARF, Chemo, Hep., AIDS, mental health diagnosis, sleep apnea, morbid obesity)? @ -Polysubstance abuse Was patient admitted / discharged? Hospital course, mention meds given and route, prescriptions, significant lab abnormalities, going to OR and other pertinent info. @ -Patient presents emergency department for altered mentation and slowed respond to questions. She presents from rehab who is concerned that she may have taken illicit substance at the facility. She denies this. She states she feels like her tongue and her face are swollen which on exam they are not. Is slower to respond to questions but otherwise acting appropriately. We will obtain general altered mental status workup. She was in agreement this plan. States she does have a history of seizures and she will be given a dose of IV fluids, IV Ativan, IV Keppra. Patient was in agreement this plan. EKG shows no signs of acute ischemia.Imaging returns unremarkable. Laboratory studies also returned unremarkable. Urinalysis is still pending. UDS is still pending. On reevaluation, patient is still slow to respond to questions but otherwise acting appropriately. As this appears to be below baseline, patient will be admitted to observation for neurology evaluation for altered mental status. She was in agreement this plan. Neurology consulted. Patient will be continued on home meds, as well as IV fluids. Undiagnosed new problem with uncertain prognosis? @ -No Drug Therapy requiring intensive monitoring for toxicity (Heparin, Nitro, Insulin, Cardizem)? @ -No Were any procedures done? @ -No Diagnosis/symptom? @ -Altered mental status Acute, or Chronic, or Acute on Chronic? @ -Acute Uncomplicated (without systemic symptoms) or Complicated (systemic symptoms)? @ -complicated Side effects of treatment? @ -None Exacerbation, Progression, or Severe Exacerbation] @ -No Poses a threat to life or bodily function? @ -Potentially, yes - Lab Data Result diagrams: 02/05/24 12:02/05/24 12: Lab Results 02/05/24 02/05/24 02/05/24 Range/Units 12: 12: 12: WBC 7.9 (3.8-10.6) k/uL RBC 4.19 (3.80-5.40) m/uL Hgb 12.5 (11.4-16.0) gm/dL Hct 36.2 (34.0-46.0) % MCV 86.4 (80.0-100.0) fL MCH 29.8 (25.0-35.0) pg MCHC 34.4 (31.0-37.0) g/dL RDW 12.5 (11.5-15.5) % Plt Count 274 (150-450) k/uL MPV 7.1 Neutrophils % 75 % Lymphocytes % 19 % Monocytes % 3 % Eosinophils % 1 % Basophils % 0 % Neutrophils # 6.0 (1.3-7.7) k/uL Lymphocytes # 1.5 (1.0-4.8) k/uL Monocytes # 0.3 (0-1.0) k/uL Eosinophils # 0.1 (0-0.7) k/uL Basophils # 0.0 (0-0.2) k/uL PT 11.0 (10.0-12.5) sec INR 1.0 (<1.2) APTT 27.3 (22.0-30.0) sec Sodium 137 (137-145) mmol/L Potassium 3.9 (3.5-5.1) mmol/L Chloride 111 H (98-107) mmol/L Carbon Dioxide 20 L (22-30) mmol/L Anion Gap 6 mmol/L BUN 9 (7-17) mg/dL Creatinine 0.68 (0.52-1.04) mg/dL Est GFR (CKD-EPI)AfAm >90 (>60 ml/min/1.73 sqM) Est GFR (CKD-EPI)NonAf >90 (>60 ml/min/1.73 sqM) Glucose 130 H (74-99) mg/dL Plasma Lactic Acid Hemal (0.7-2.0) mmol/L Calcium 9.1 (8.4-10.2) mg/dL Total Bilirubin 0.7 (0.2-1.3) mg/dL AST 21 (14-36) U/L ALT 16 (4-34) U/L Alkaline Phosphatase 76 (38-126) U/L Ammonia (<30) umol/L Total Protein 7.1 (6.3-8.2) g/dL Albumin 4.1 (3.5-5.0) g/dL Salicylates <1.0 mg/dL Acetaminophen <10.0 ug/mL Serum Alcohol <10 mg/dL 02/05/24 Range/Units 12:26 WBC (3.8-10.6) k/uL RBC (3.80-5.40) m/uL Hgb (11.4-16.0) gm/dL Hct (34.0-46.0) % MCV (80.0-100.0) fL MCH (25.0-35.0) pg MCHC (31.0-37.0) g/dL RDW (11.5-15.5) % Plt Count (150-450) k/uL MPV Neutrophils % % Lymphocytes % % Monocytes % % Eosinophils % % Basophils % % Neutrophils # (1.3-7.7) k/uL Lymphocytes # (1.0-4.8) k/uL Monocytes # (0-1.0) k/uL Eosinophils # (0-0.7) k/uL Basophils # (0-0.2) k/uL PT (10.0-12.5) sec INR (<1.2) APTT (22.0-30.0) sec Sodium (137-145) mmol/L Potassium (3.5-5.1) mmol/L Chloride (98-107) mmol/L Carbon Dioxide (22-30) mmol/L Anion Gap mmol/L BUN (7-17) mg/dL Creatinine (0.52-1.04) mg/dL Est GFR (CKD-EPI)AfAm (>60 ml/min/1.73 sqM) Est GFR (CKD-EPI)NonAf (>60 ml/min/1.73 sqM) Glucose (74-99) mg/dL Plasma Lactic Acid Hemal 1.2 (0.7-2.0) mmol/L Calcium (8.4-10.2) mg/dL Total Bilirubin (0.2-1.3) mg/dL AST (14-36) U/L ALT (4-34) U/L Alkaline Phosphatase (38-126) U/L Ammonia 14 (<30) umol/L Total Protein (6.3-8.2) g/dL Albumin (3.5-5.0) g/dL Salicylates mg/dL Acetaminophen ug/mL Serum Alcohol mg/dL - EKG Data -: EKG Interpreted by Me EKG Comments: 12-lead Electrocardiogram Interpretation Note EKG was reviewed and interpreted by myself. 12-lead ECG performed at 1244 is interpreted by me as revealing sinus bradycardia at a rate of 50 beats per minute. The axis is normal. MO interval is 145 ms, QRS duration is 85 ms, QTc is 430 ms.. There were no ST or T wave abnormalities to suggest myocardial ischemia or injury. R wave progression across the precordium was satisfactory. By my interpretation this EKG is non-diagnostic for acute ischemia. Disposition Clinical Impression: Altered mental status Disposition: ADMITTED IP TO THIS HOSP Condition: Stable Time of Disposition: 15:00
[2024-02-05 13:19] LABS: Partial Thromboplastin Time 27.3 sec (22.0-30.0)
--- NOTE | 2024-02-05 13:28 | CT ---
EXAMINATION TYPE: CT brain wo con CT DLP: 1096.4 mGycm, Automated exposure control for dose reduction was used. DATE OF EXAM: 02/05/2024 1:23 PM COMPARISON: Prior CT Brain from 10/10/2022. CLINICAL INDICATION:Female, 38 years old with history of Altered mental status, ams TECHNIQUE: Brain: Multiple axial CT images of the brain were obtained without IV contrast. . Coronal and sagitta l reformats reviewed. FINDINGS: Brain: Extra-axial spaces: No abnormal extra-axial fluid collections. Ventricular system: Within normal limits Cerebral parenchyma: No acute intraparenchymal hemorrhage or mass effect. The faith-white junction is well differentiated. Cerebellum: Unremarkable. Mass effect: No evidence of midline shift. Intracranial vasculature: unremarkable Soft tissues: Normal. Calvarium/osseous structures: No depressed skull fracture. Paranasal sinuses and mastoid air cells: Clear Visualized orbits: Orbital contents are intact. IMPRESSION: No acute intracranial process. [facility], , 02/05/2024 1:26 PM
[2024-02-05] MEDS: levETIRAcetam IV 500 MG/5 ML VIAL IVP STA (13:31)
--- NOTE | 2024-02-05 13:36 | XR ---
EXAMINATION TYPE: XR chest 2V DATE OF EXAM: 02/05/2024 1:24 PM COMPARISON: 10/10/2022 CLINICAL INDICATION: Female, 38 years old with history of altered mental status, , TECHNIQUE: AP and lateral views FINDINGS: Heart upper limits of normal in size. Hazy densities relating to overlying soft tissue. No violette cons olidation or pleural effusion seen. IMPRESSION: No definite acute process. [facility], , 02/05/2024 1:33 PM
[2024-02-05] MEDS ORDERED: NALOXONE 0.4 MG/ML 1 ML VIAL IV PRN (15:06)
[2024-02-05] MEDS ORDERED: CALCIUM CARB-VIT D 500 MG-5 MCG TAB PO PRN (15:43)
[2024-02-05] MEDS ORDERED: MAG HYDROX/AL HYDROX/SIMETH 30 ML CUP PO PRN (15:43)
[2024-02-05] MEDS ORDERED: LOPERAMIDE 2 MG CAP PO PRN (15:43)
[2024-02-05] MEDS ORDERED: ONDANSETRON 4 MG TAB PO PRN (15:43)
[2024-02-05] MEDS ORDERED: DOCUSATE 100 MG CAP PO PRN (15:43)
[2024-02-05] MEDS ORDERED: HYOSCYAMINE SULFATE 0.125 MG TAB PO PRN (15:43)
[2024-02-05] MEDS: SODIUM CHLORIDE 0.9% 1,000 ML IV STA (20:21)
[2024-02-05 21:16] LABS: Appearance,Urine Cloudy (Clear); Bacteria,Urine Few /hpf; Bilirubin,Urine Negative (Negative); Blood,Urine Moderate (Negative); Budding Yeast,Urine Occasional /hpf; Color,Urine Colorless; Glucose,Urine (UA) Negative (Negative); Ketones,Urine 1+ (Negative); Leukocyte Esterase,Urine Negative (Negative); Mucus,Urine Rare /hpf; Nitrite,Urine Positive (Negative); PH, Urine 6.5 (5.0-8.0); Protein,Urine Negative (Negative); RBC,Urine 1 /hpf (0-5); Specific Gravity,Urine 1.018 (1.001-1.035); Squamous Epithelial Cell,Urine 2 /hpf (0-4); Urobilinogen,Urine <2.0 mg/dL (<2.0); WBC,Urine 5 /hpf (0-5)
[2024-02-05 21:30] LABS: Amphetamine Screen,Urine Not Detected (NotDetected); Benzodiazepines Screen,Urine Detected (NotDetected); Cocaine Screen,Urine Not Detected (NotDetected); Opiate Screen,Urine Detected (NotDetected); Phencyclidine Screen,Urine Not Detected (NotDetected); Urn Cannabinoid Scrn Not Detected (NotDetected)
[2024-02-05 21:31] LABS: Barbiturate Screen,Urine Not Detected (NotDetected); Methadone Screen, Urine Not Detected (NotDetected); Oxycodone Screen, Urine Not Detected (NotDetected); Tricyclic Antidepressant,Urine Not Detected (NotDetected)
[2024-02-05] MEDS: ONDANSETRON 4 MG/2 ML VIAL IVP PRN (21:50)
--- NOTE | 2024-02-06 07:00 | P.CNNES ---
History of Present Illness Consult date: 02/06/24 Reason for Consult: History of drug use/abuse, seizure disorder with seizure at home. Chief complaint: "I had seizures and I missed my medicine at home." History of Present Illness: Ms. Paul is a 38-year-old female with history of hypotension, left toe infection, seizure disorder for which she takes Keppra at home, and multiple drug use/abuse, including heroin, cocaine, methamphetamine, benzodiazepines, and opiates. She was seen and is admitted to [facility] as of February 05, 2024 after she was transferred from [facility] where she was being treated for benzodiazepine and heroin abuse. She was stating at that time that her tongue and face were swollen which she states happens when she has a seizure. At this time in the emergency room she is slow to respond to questions and appears somewhat unreliable with her history. She does state that she has missed some of her medication recently. She also denies recent drug use except for "the day I came into the hospital." Noncontrast CT of the head on February 04 was negative as well as a chest x-ray. An EKG revealed bradycardia bradycardia at 50 bpm. Other labs include urinalysis with 5 white blood cells and positive nitrites as well as urine drug screen positive for opiates and benzodiazepines. Neurology has been consulted for further management recommendations. Review of Systems Constitutional: Reports as per HPI, Reports lethargy Cardiovascular: Reports as per HPI Respiratory: Reports as per HPI Gastrointestinal: Reports abdominal pain, Reports diarrhea Genitourinary: Reports dysmenorrhea Menstruation: Reports cycle variable Musculoskeletal: Reports low back pain Musculoskeletal: right: shoulder pain Integumentary: Reports unusual bruising Neurological: Reports as per HPI Psychiatric: Reports as per HPI Past Medical History Past Medical History: Unable to Obtain Additional Past Medical History / Comment(s): heroin addiction, also cocaine, meth, benzo and opiate abuse; hypotension, left great toe infection History of Any Multi-Drug Resistant Organisms: Unobtainable Past Surgical History: Unable to Obtain Additional Past Surgical History / Comment(s): x 3 Past Anesthesia/Blood Transfusion Reactions: No Reported Reaction Past Psychological History: Unable to Obtain Smoking Status: Unknown if ever smoked Past Alcohol Use History: Unable to Obtain Past Drug Use History: Unable to Obtain Medications and Allergies Home Medications Medication Instructions Recorded Confirmed Type Acetaminophen Tab [Tylenol] 650 mg PO Q4H 11/29/24 11/29/24 History Calcium Phos/D3/Magnesium/Zinc 1 tab PO TID PRN 02/05/24 02/05/24 History [Wcvwiaj-Llr-Lsva-Vitamin D3] Chlorpheniramine Maleate 4 mg PO Q4H PRN 02/05/24 02/05/24 History [Chlor-Trimeton] Docusate [Colace] 100 mg PO BID PRN 02/05/24 02/05/24 History Hyoscyamine Sulfate [Levsin] 0.125 mg PO QID PRN 02/05/24 02/05/24 History Ibuprofen [Motrin Ib] 600 mg PO Q6H PRN 02/05/24 02/05/24 History Loperamide [Imodium] 4 mg PO QID PRN 02/05/24 02/05/24 History Multivitamins, Thera [Multivitamin 1 tab PO DAILY 02/05/24 02/05/24 History (formulary)] Mylanta 30 ml PO Q4H PRN 02/05/24 02/05/24 History Thiamine [Vitamin B-1] 100 mg PO DAILY 02/05/24 02/05/24 History cloNIDine HCL [Catapres] 0.1 mg PO Q4H PRN 02/05/24 02/05/24 History ondansetron HCL [Zofran] 8 mg PO Q6H PRN 02/05/24 02/05/24 History traZODone HCL [Desyrel] 50 - 150 mg PO HS PRN 02/05/24 02/05/24 History Allergies Allergy/AdvReac Type Severity Reaction Status Date / Time pineapple Allergy Unknown Verified 02/05/24 15:45 Physical Examination - Vital Signs Vital Signs: Vital Signs Temp Pulse Resp BP Pulse Ox 02/06/24 06:06 98.3 F 61 18 142/73 99 02/06/24 02:36 68 18 118/70 95 02/05/24 16:33 50 L 18 132/78 98 02/05/24 15:44 99.9 F H 49 L 18 112/87 98 02/05/24 12:01 98.7 F 84 20 142/84 99 Intake and Output 02/05/24 02/05/24 02/06/24 14:59 22:59 06:59 Other: Weight 68.039 kg Patient is slow to respond to questions. However she does follow simple commands and will answer some historical questions with brief sentences. Her affect appears depressed. - EENT EENT: PERRL - Respiratory Respiratory: lungs clear, normal breath sounds, no respiratory distress - Cardiovascular Cardiovascular: regular rate, no murmurs - Gastrointestinal Gastrointestinal: normoactive bowel sounds, non-tender - Integumentary Integumentary: normal - Neurologic Cranial nerve examination: PERRL, EOMI, VFF, V1/V2/V3 grossly intact, face symmetric, tongue midline, intact Sensorimotor examination: other (The patient has some effort limited weakness in her arms and legs bilaterally but is able to raise both arms as well as both legs with strength of approximately 4+ to 5- out of 5 given her volitional weakness.) Detailed sensory examination: intact Reflex and gait examination: other (Reflexes 1+ and symmetric in the arms and legs bilaterally with plantar responses downgoing bilaterally.) Results Noncontrast CT of the head from February 04 was read as negative and chest x-ray was read as negative. EKG is consistent with bradycardia 50 bpm. Other pertinent laboratories include urinalysis with 5 white blood cells moderate blood and positive nitrites. Urine drug screen was positive for opiates as well as benzodiazepines. - Laboratory Findings CBC and BMP: 02/05/24 12:26 02/05/24 12:26 Abnormal Lab Findings: Abnormal Labs 02/05/24 02/05/24 02/05/24 12:26 20:24 20:24 Chloride 111 H Carbon Dioxide 20 L Glucose 130 H Urine Appearance Cloudy H Urine Ketones 1+ H Urine Blood Moderate H Urine Nitrite Positive H Urine Bacteria Few H Urine Mucus Rare H Urine Yeast (Budding) Occasional H Urine Opiates Screen Detected H U Benzodiazepines Scrn Detected H Assessment and Plan Assessment: Ms. Paul is a 38-year-old female with history of seizure disorder for which she states she takes Keppra at home. She missed some doses recently and is being treated for benzodiazepine and heroin abuse. She may have suffered a seizure at the outlying hospital and is somewhat lethargic at this time. She is also nauseated. She has been loaded with Keppra 1000 mg x 1 in the emergency room and will continue on 500 mg every 12 hours of Keppra. Plan: 1. I will continue the patient on Keppra 500 mg p.o. every 12 hours. 2. I have not elected to perform an electroencephalogram at this time, as the patient has a known seizure disorder and has been off of medication. She will be monitored in house for seizure activity and if this is noted on the EEG may be performed as she is being managed with seizure medication at this time. 3. Neurology will continue to follow her in house to make further recommendations as needed. Time with Patient: Less than 30
[2024-02-06] MEDS: levETIRAcetam 500 MG TAB PO SCH (08:34)
[2024-02-06 09:31] LABS: Basophils # (A) 0.01 X 10*3/uL (0.00-0.10); Basophils % (A) 0.1 %; Eosinophils # (A) 0 X 10*3/uL (0.04-0.35); Eosinophils % (A) 0 %; HCT 35.7 % (37.2-46.3); HGB 12.4 g/dL (12.0-15.0); Lymphocytes # (A) 1.72 X 10*3/uL (0.90-5.00); Lymphocytes % (A) 14.9 %; MCH 29.5 pg (27.0-32.0); MCHC 34.7 g/dL (32.0-37.0); Mean Platelet Volume 10.3 FL (9.5-12.2); Monocytes # (A) 0.39 X 10*3/uL (0.20-1.00); Monocytes % (A) 3.4 %; NRBC Per 100 WBC 0 X 10*3/uL (0.00-0.01); Neutrophils # (A) 9.36 X 10*3/uL (1.80-7.70); Neutrophils % (A) 80.8 %; Platelet Count 276 X 10*3/uL (140-440); RDW 11.9 % (11.5-14.5); WBC 11.57 X 10*3/uL (4.50-10.00)
[2024-02-06 09:42] LABS: ALT 13 U/L (8-44); AST 17 U/L (13-35); Albumin 4.3 g/dL (3.8-4.9); Albumin/Globulin Ratio 1.72 Ratio (1.60-3.17); Alkaline Phosphatase 66 U/L (41-126); BUN/Creat Ratio 15.29 Ratio (12.00-20.00); Blood Urea Nitrogen 10.7 mg/dL (9.0-27.0); Calcium 9.1 mg/dL (8.7-10.3); Carbon Dioxide 21.3 mmol/L (21.6-31.8); Chloride 104 mmol/L (96-109); Globulin 2.5 g/dL (1.6-3.3); Glucose 123 mg/dL (70-110); Potassium 3.6 mmol/L (3.5-5.5); Sodium 139 mmol/L (135-145); Total Bilirubin 0.3 mg/dL (0.3-1.2); Total Protein 6.8 g/dL (6.2-8.2)
[2024-02-06] MEDS: diphenhydrAMINE 25 MG CAP PO PRN (11:19)
--- NOTE | 2024-02-06 13:38 | P.HPIM ---
History of Present Illness 38-year-old female was brought in because of her altered consciousness drowsiness admitted for altered mental status believed to have used heroin was found with a powdery substance patient admits to using IV drugs quite lethargic unable to provide much of the history but she states she does not know what she used and patient does have history of IV drug use in the past. EKG showed sinus bradycardia urine drug screen is slightly positive but not impressive for UTI patient admission CBC did not show any leukocytosis but today morning CBC she had mild leukocytosis patient has been nauseous throwing up. Unknown whether patient has a history of hepatitis C neurology evaluated the patient started on Keppra as she missed some doses of Keppra at home patient appears to have toxic encephalopathy patient had a noncontrast CT of the head which is within normal limits. Pupils appropriately reacting to light. REVIEW OF SYSTEMS: All other systems are negative except those mentioned in the HPI PHYSICAL EXAMINATION: GENERAL: The patient is drowsy and oriented x3, not in any acute distress. Well developed, well nourished. HEENT: Pupils are round and equally reacting to light. EOMI. No scleral icterus. No conjunctival pallor. Normocephalic, atraumatic. No pharyngeal erythema. No thyromegaly. CARDIOVASCULAR: S1 and S2 present. No murmurs, rubs, or gallops. PULMONARY: Chest is clear to auscultation, no wheezing or crackles. ABDOMEN: Soft, nontender, nondistended, normoactive bowel sounds. No palpable organomegaly. MUSCULOSKELETAL: No joint swelling or deformity. EXTREMITIES: No cyanosis, clubbing, or pedal edema. NEUROLOGICAL: Lethargic generalized weakness without any focal weakness SKIN: No rashes. 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: Counseling was provided patient will be monitored -Leukocytosis reactive in nature seizure disorder patient was started back on Keppra History of IV drug use will obtain hepatitis panel DVT prophylaxis: Lovenox : Past Medical History Past Medical History: Unable to Obtain Additional Past Medical History / Comment(s): heroin addiction, also cocaine, meth, benzo and opiate abuse; hypotension, left great toe infection History of Any Multi-Drug Resistant Organisms: Unobtainable Past Surgical History: Unable to Obtain Additional Past Surgical History / Comment(s): x 3 Past Anesthesia/Blood Transfusion Reactions: No Reported Reaction Past Psychological History: Unable to Obtain Smoking Status: Unknown if ever smoked Past Alcohol Use History: Unable to Obtain Past Drug Use History: Unable to Obtain Medications and Allergies Home Medications Medication Instructions Recorded Confirmed Type Acetaminophen Tab [Tylenol] 650 mg PO Q4H 02/05/24 02/05/24 History Calcium Phos/D3/Magnesium/Zinc 1 tab PO TID PRN 02/05/24 02/05/24 History [Kifpyvy-Ski-Tmro-Vitamin D3] Chlorpheniramine Maleate 4 mg PO Q4H PRN 02/05/24 02/05/24 History [Chlor-Trimeton] Docusate [Colace] 100 mg PO BID PRN 02/05/24 02/05/24 History Hyoscyamine Sulfate [Levsin] 0.125 mg PO QID PRN 02/05/24 02/05/24 History Ibuprofen [Motrin Ib] 600 mg PO Q6H PRN 02/05/24 02/05/24 History Loperamide [Imodium] 4 mg PO QID PRN 02/05/24 02/05/24 History Multivitamins, Thera [Multivitamin 1 tab PO DAILY 02/05/24 02/05/24 History (formulary)] Mylanta 30 ml PO Q4H PRN 02/05/24 02/05/24 History Thiamine [Vitamin B-1] 100 mg PO DAILY 02/05/24 02/05/24 History cloNIDine HCL [Catapres] 0.1 mg PO Q4H PRN 02/05/24 02/05/24 History ondansetron HCL [Zofran] 8 mg PO Q6H PRN 02/05/24 02/05/24 History traZODone HCL [Desyrel] 50 - 150 mg PO HS PRN 02/05/24 02/05/24 History Allergies Allergy/AdvReac Type Severity Reaction Status Date / Time pineapple Allergy Unknown Verified 02/05/24 15:45 Physical Exam Vitals: Vital Signs Temp Pulse Resp BP Pulse Ox 02/06/24 11:19 66 20 152/84 99 02/06/24 07:45 98.4 F 54 L 20 127/58 98 02/06/24 06:06 98.3 F 61 18 142/73 99 02/06/24 02:36 68 18 118/70 95 02/05/24 16:33 50 L 18 132/78 98 02/05/24 15:44 99.9 F H 49 L 18 112/87 98 Results CBC & Chem 7: 02/06/24 05:59 02/06/24 05:59 Labs: Abnormal Lab Results - Last 24 Hours (Table) 02/05/24 02/05/24 02/06/24 Range/Units 20:24 20:24 05:59 WBC 11.57 H (4.50-10.00) X 10*3/uL Hct 35.7 L (37.2-46.3) % Immature Gran # 0.09 H (0.00-0.04) X 10*3/uL Neutrophils # 9.36 H (1.80-7.70) X 10*3/uL Eosinophils # 0 L (0.04-0.35) X 10*3/uL Carbon Dioxide (21.6-31.8) mmol/L Anion Gap (4.00-12.00) mmol/L Glucose (70-110) mg/dL Urine Appearance Cloudy H (Clear) Urine Ketones 1+ H (Negative) Urine Blood Moderate H (Negative) Urine Nitrite Positive H (Negative) Urine Bacteria Few H (None) /hpf Urine Mucus Rare H (None) /hpf Urine Yeast (Budding) Occasional H (None) /hpf Urine Opiates Screen Detected H (NotDetected) U Benzodiazepines Scrn Detected H (NotDetected) 02/06/24 Range/Units 05:59 WBC (4.50-10.00) X 10*3/uL Hct (37.2-46.3) % Immature Gran # (0.00-0.04) X 10*3/uL Neutrophils # (1.80-7.70) X 10*3/uL Eosinophils # (0.04-0.35) X 10*3/uL Carbon Dioxide 21.3 L (21.6-31.8) mmol/L Anion Gap 13.70 H (4.00-12.00) mmol/L Glucose 123 H (70-110) mg/dL Urine Appearance (Clear) Urine Ketones (Negative) Urine Blood (Negative) Urine Nitrite (Negative) Urine Bacteria (None) /hpf Urine Mucus (None) /hpf Urine Yeast (Budding) (None) /hpf Urine Opiates Screen (NotDetected) U Benzodiazepines Scrn (NotDetected)
[2024-02-06] MEDS: ACETAMINOPHEN TAB 325 MG TAB PO SCH (15:13)
[2024-02-06] MEDS: levETIRAcetam IV 500 MG/5 ML VIAL IVP SCH (21:38)
[2024-02-06 23:22] LABS: Hepatitis A Antibody IgM Nonreactive (Nonreactive); Hepatitis C IgG Antibody Nonreactive (Nonreactive)
[2024-02-06 23:23] LABS: Hepatitis B Core IgM Nonreactive (Nonreactive); Hepatitis B Surface Antigen Nonreactive (Nonreactive)
[2024-02-07] MEDS: THIAMINE 100 MG TAB PO SCH (08:31)
[2024-02-07] MEDS: ENOXAPARIN 40 MG/0.4 ML SYRINGE SQ SCH (08:31)
[2024-02-07] MEDS ORDERED: levETIRAcetam IV 500 MG/5 ML VIAL IVP SCH (09:00)
[2024-02-07 09:29] LABS: BUN/Creat Ratio 21.12 Ratio (12.00-20.00); Blood Urea Nitrogen 16.9 mg/dL (9.0-27.0); Chloride 106 mmol/L (96-109); Glucose 122 mg/dL (70-110); Magnesium 2.3 mg/dL (1.5-2.4); Potassium 3.3 mmol/L (3.5-5.5); Sodium 143 mmol/L (135-145)
--- NOTE | 2024-02-07 09:29 | P.PN ---
Subjective Progress Note Date: 02/07/24 Principal diagnosis: Altered mental status and seizure disorder with secondary benzodiazepine and heroin abuse. Ms. Paul is a 38-year-old female with history of hypotension, left toe infection, seizure disorder for which she takes Keppra at home, and multiple drug use/abuse, including heroin, cocaine, methamphetamine, benzodiazepines, and opiates. She was seen and is admitted to [facility] as of February 05, 2024 after she was transferred from [facility] where she was being treated for benzodiazepine and heroin abuse. She was stating at that time that her tongue and face were swollen which she states happens when she has a seizure. At this time in the emergency room she is slow to respond to questions and appears somewhat unreliable with her history. She does state that she has missed some of her medication recently. She also denies recent drug use except for "the day I came into the hospital." Noncontrast CT of the head on February 04 was negative as well as a chest x-ray. An EKG revealed bradycardia bradycardia at 50 bpm. Other labs include urinalysis with 5 white blood cells and positive nitrites as well as urine drug screen positive for opiates and benzodiazepines. When seen initially on February 06, 2024, the patient was slow to respond but was able to communicate that she was prescribed Keppra at home but had not been taking it recently. She was continued on 500 mg every 12 hours of Keppra at that time. When seen in follow-up on February 07, 2024, the patient has been admitted to [facility] and she is various quiet and somnolent lying in bed. She will not open her eyes to sternal rub but will nod her head yes or no in response to questions. I did say I wish to hear her speak and asked her her name. She said "Coleman". Otherwise neurologic exam was grossly nonfocal. She is likely going through some symptoms of narcotic withdrawal at this time. Assessment: Ms. Paul is a 38-year-old female with history of seizure disorder for which she states she takes Keppra at home. She missed some doses recently and is being treated for benzodiazepine and heroin abuse. She may have suffered a seizure at the outlying hospital and is somewhat lethargic at this time. She is also nauseated. She has been loaded with Keppra 1000 mg x 1 in the emergency room and will continue on 500 mg every 12 hours of Keppra. Plan: 1. I will continue the patient on Keppra 500 mg p.o. every 12 hours. 2. I believe her current somnolence and poor responsiveness is likely due to effects of either drug withdrawal or psychological manifestations. I have recommended to nursing that mental health consult be considered in light of the current situation. 3. Neurology will continue to follow the patient in house and make further recommendations if needed. Dr. Sincere Farias will resume care of the neurology service on February 08, 2024. Objective - Vital Signs Vital signs: Vital Signs Temp 99.7 F H 02/07/24 07:00 Pulse 71 02/07/24 07:00 Resp 16 02/07/24 07:00 BP 166/82 02/07/24 07:00 Pulse Ox 96 02/07/24 07:00 FiO2 Intake & Output 02/06/24 02/07/24 02/07/24 18:59 06:59 18:59 Intake Total 0 Balance 0 Weight 68.039 kg Intake: Oral 0 Other: Voiding Method Toilet Bedpan External Catheter # Voids 3 # Bowel Movements 3 - Labs CBC & Chem 7: 02/06/24 05:59 02/06/24 05:59 Labs: Abnormal Lab Results - Last 24 Hours (Table) 02/06/24 02/06/24 Range/Units 05:59 05:59 WBC 11.57 H (4.50-10.00) X 10*3/uL Hct 35.7 L (37.2-46.3) % Immature Gran # 0.09 H (0.00-0.04) X 10*3/uL Neutrophils # 9.36 H (1.80-7.70) X 10*3/uL Eosinophils # 0 L (0.04-0.35) X 10*3/uL Carbon Dioxide 21.3 L (21.6-31.8) mmol/L Anion Gap 13.70 H (4.00-12.00) mmol/L Glucose 123 H (70-110) mg/dL
[2024-02-07 09:30] LABS: Calcium 9.4 mg/dL (8.7-10.3); Carbon Dioxide 21.8 mmol/L (21.6-31.8)
[2024-02-07 09:57] LABS: HCT 38.8 % (37.2-46.3); HGB 13.5 g/dL (12.0-15.0); MCH 28.8 pg (27.0-32.0); MCHC 34.8 g/dL (32.0-37.0); MCV 82.7 FL (80.0-97.0); Mean Platelet Volume 9.9 FL (9.5-12.2); NRBC Per 100 WBC 0 X 10*3/uL (0.00-0.01); Platelet Count 372 X 10*3/uL (140-440); RBC 4.69 X 10*6/uL (4.10-5.20); RDW 12.2 % (11.5-14.5); WBC 15.21 X 10*3/uL (4.50-10.00)
--- NOTE | 2024-02-07 11:47 | P.PN ---
Subjective 38-year-old female was brought in because of her altered consciousness drowsiness admitted for altered mental status believed to have used heroin was found with a powdery substance patient admits to using IV drugs quite lethargic unable to provide much of the history but she states she does not know what she used and patient does have history of IV drug use in the past. EKG showed sinus bradycardia urine drug screen is slightly positive but not impressive for UTI patient admission CBC did not show any leukocytosis but today morning CBC she had mild leukocytosis patient has been nauseous throwing up. Unknown whether patient has a history of hepatitis C neurology evaluated the patient started on Keppra as she missed some doses of Keppra at home patient appears to have toxic encephalopathy patient had a noncontrast CT of the head which is within normal limits. Pupils appropriately reacting to light. February 07, 2024 Patient is alert arousable but eventually does not open her eyes patient continues to have some psychiatric issue I do not believe patient is drowsy although patient is having urinary and bowel incontinence. Patient had a low- grade fever with white count going up. X-ray did not show any abnormality altho ugh urine is slightly abnormal patient will be started on Rocephin awaiting urine cultures REVIEW OF SYSTEMS: All other systems are negative except those mentioned in the HPI PHYSICAL EXAMINATION: GENERAL: The patient is drowsy and oriented x3, not in any acute distress. Well developed, well nourished. HEENT: Pupils are round and equally reacting to light. EOMI. No scleral icterus. No conjunctival pallor. Normocephalic, atraumatic. No pharyngeal erythema. No thyromegaly. CARDIOVASCULAR: S1 and S2 present. No murmurs, rubs, or gallops. PULMONARY: Chest is clear to auscultation, no wheezing or crackles. ABDOMEN: Soft, nontender, nondistended, normoactive bowel sounds. No palpable o rganomegaly. MUSCULOSKELETAL: No joint swelling or deformity. EXTREMITIES: No cyanosis, clubbing, or pedal edema. NEUROLOGICAL: Lethargic generalized weakness without any focal weakness SKIN: No rashes. 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: Counseling was provided patient will be monitored -Possibility of urinary tract infection: Patient was started on Rocephin -Leukocytosis possibly due to UTI seizure disorder patient was started back on Keppra History of IV drug use panel is negative DVT prophylaxis: Lovenox Objective - Vital Signs Vital signs: Vital Signs Temp 99.7 F H 02/07/24 07:00 Pulse 71 02/07/24 07:00 Resp 16 02/07/24 07:00 BP 166/82 02/07/24 07:00 Pulse Ox 96 02/07/24 07:00 FiO2 Intake & Output 02/06/24 02/07/24 02/07/24 18:59 06:59 18:59 Intake Total 0 Balance 0 Weight 68.039 kg Intake: Oral 0 Other: Voiding Method Toilet Bedpan Diaper External Catheter # Voids 3 # Bowel Movements 3 - Labs CBC & Chem 7: 02/07/24 05:29 02/07/24 05:29 Labs: Abnormal Lab Results - Last 24 Hours (Table) 02/07/24 02/07/24 Range/Units 05:29 05:29 WBC 15.21 H (4.50-10.00) X 10*3/uL Potassium 3.3 L (3.5-5.5) mmol/L Anion Gap 15.20 H (4.00-12.00) mmol/L BUN/Creatinine Ratio 21.12 H (12.00-20.00) Ratio Glucose 122 H (70-110) mg/dL
[2024-02-07] MEDS: POTASSIUM CHLORIDE ER 20 MEQ TAB.ER PO STA (12:49)
[2024-02-07] MEDS: POTASSIUM CHLORIDE 10 MEQ in WATER FOR INJECTION 1 100ML.BAG IVPB SCH (13:16)
[2024-02-07] MEDS: SODIUM CHLORIDE 0.9% 1,000 ML IV SCH (14:24)
[2024-02-07] MEDS: cloNIDine HCL 0.1 MG TAB PO PRN (21:20)
[2024-02-07] MEDS: TRIMETHOBENZAMIDE 100 MG/ML 2 ML VIAL IM STA (22:59)
[2024-02-07] MEDS: cloNIDine 0.2 MG/24HR PATCH TRANSDERM SCH (23:00)
[2024-02-07] MEDS: PROCHLORPERAZINE INJ 10 MG/2 ML VIAL IVP PRN (23:00)
[2024-02-07] MEDS: ACETAMINOPHEN IV (For NPO) 1,000 MG in EMPTY BAG 1 BAG IVPB STA (23:05)
[2024-02-08] MEDS: LORazepam 2 MG/ML INJ IV PRN (03:18)
[2024-02-08] MEDS ORDERED: ACETAMINOPHEN SUPPOSITORY 650 MG SUPP RECTAL PRN (06:49)
[2024-02-08 08:35] LABS: WBC 15.31 X 10*3/uL (4.50-10.00)
[2024-02-08 08:36] LABS: Basophils # (A) 0.02 X 10*3/uL (0.00-0.10); Basophils % (A) 0.1 %; Eosinophils # (A) 0 X 10*3/uL (0.04-0.35); Eosinophils % (A) 0 %; HCT 38.9 % (37.2-46.3); HGB 13.4 g/dL (12.0-15.0); Lymphocytes # (A) 3.37 X 10*3/uL (0.90-5.00); MCH 29.3 pg (27.0-32.0); MCHC 34.4 g/dL (32.0-37.0); MCV 84.9 FL (80.0-97.0); Mean Platelet Volume 10.2 FL (9.5-12.2); Monocytes # (A) 1.29 X 10*3/uL (0.20-1.00); Monocytes % (A) 8.4 %; NRBC Per 100 WBC 0 X 10*3/uL (0.00-0.01); Neutrophils # (A) 10.55 X 10*3/uL (1.80-7.70); Platelet Count 350 X 10*3/uL (140-440); RBC 4.58 X 10*6/uL (4.10-5.20); RDW 12.3 % (11.5-14.5)
[2024-02-08 08:52] LABS: BUN/Creat Ratio 28.57 Ratio (12.00-20.00); Calcium 8.7 mg/dL (8.7-10.3); Carbon Dioxide 22.1 mmol/L (21.6-31.8); Chloride 110 mmol/L (96-109); Glucose 122 mg/dL (70-110); Potassium 3.4 mmol/L (3.5-5.5); Sodium 144 mmol/L (135-145)
[2024-02-08] MEDS ORDERED: HALOPERIDOL LACTATE 5 MG/ML 1 ML VIAL IM PRN (13:27)
--- NOTE | 2024-02-08 13:29 | P.PN ---
Subjective Progress Note Date: 02/08/24 38-year-old female was brought in because of her altered consciousness drowsiness admitted for altered mental status believed to have used heroin was found with a powdery substance patient admits to using IV drugs quite lethargic unable to provide much of the history but she states she does not know what she used and patient does have history of IV drug use in the past. EKG showed sinus bradycardia urine drug screen is slightly positive but not impressive for UTI patient admission CBC did not show any leukocytosis but today morning CBC she had mild leukocytosis patient has been nauseous throwing up. Unknown whether patient has a history of hepatitis C neurology evaluated the patient started on Keppra as she missed some doses of Keppra at home patient appears to have toxic encephalopathy patient had a noncontrast CT of the head which is within normal limits. Pupils appropriately reacting to light. February 07, 2024 Patient is alert arousable but eventually does not open her eyes patient continues to have some psychiatric issue I do not believe patient is drowsy although patient is having urinary and bowel incontinence. Patient had a low- grade fever with white count going up. X-ray did not show any abnormality although urine is slightly abnormal patient will be started on Rocephin awaiting urine cultures 02-08-24 Patient seen and examined at bedside. Overnight patient had several episodes of vomiting with loose diarrhea. Tmax overnight 100.8. This morning she was shukri wsy and not answering questions appropriately. WBC increased to 15.31. Blood and urine cultures pending. REVIEW OF SYSTEMS: All other systems are negative except those mentioned in the HPI PHYSICAL EXAMINATION: GENERAL: somnolent and oriented x 1, not in any acute distress. Well developed, well nourished. HEENT: Pupils are round and equally reacting to light. EOMI. No scleral icterus. No conjunctival pallor. Normocephalic, atraumatic. CARDIOVASCULAR: S1 and S2 present. No murmurs, rubs, or gallops. PULMONARY: Chest is clear to auscultation, no wheezing or crackles. ABDOMEN: Soft, suprapubic tenderness, nondistended, normoactive bowel sounds. No palpable organomegaly. MUSCULOSKELETAL: No joint swelling or deformity. EXTREMITIES: No cyanosis, clubbing, or pedal edema. NEUROLOGICAL: Lethargic generalized weakness without any focal weakness SKIN: No rashes. 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: Counseling was provided patient will be monitored, neurology and psychiatry consulted -Possibility of urinary tract infection: Continue Rocephin -Leukocytosis possibly due to UTI seizure disorder patient was started back on Keppra History of IV drug use panel is negative DVT prophylaxis: Lovenox Dr. Samanta MD I have performed a history and physical examination and medical decision making of this patient, discussed the same with the the resident, and agree with the assessment and plan as written. I performed brief physical exam. Objective - Vital Signs Vital signs: Vital Signs Temp 97.6 F 02/08/24 07:00 Pulse 79 02/08/24 07:00 Resp 16 02/08/24 07:00 BP 145/89 02/08/24 07:00 Pulse Ox 96 02/08/24 07:00 FiO2 Intake & Output 02/07/24 02/08/24 02/08/24 18:59 06:59 18:59 Other: Voiding Method Diaper Diaper External Catheter External Catheter # Voids 3 1 1 # Bowel Movements 1 1 - Labs CBC & Chem 7: 02/08/24 04:56 02/08/24 04:56 Labs: Abnormal Lab Results - Last 24 Hours (Table) 02/08/24 02/08/24 Range/Units 04:56 04:56 WBC 15.31 H (4.50-10.00) X 10*3/uL Immature Gran # 0.08 H (0.00-0.04) X 10*3/uL Neutrophils # 10.55 H (1.80-7.70) X 10*3/uL Monocytes # 1.29 H (0.20-1.00) X 10*3/uL Eosinophils # 0 L (0.04-0.35) X 10*3/uL Potassium 3.4 L (3.5-5.5) mmol/L Chloride 110 H (96-109) mmol/L BUN/Creatinine Ratio 28.57 H (12.00-20.00) Ratio Glucose 122 H (70-110) mg/dL
--- NOTE | 2024-02-08 13:35 | P.CN ---
Psychiatric Consult - . Consult date: 02/08/24 Consult:: 02/08/24 12:57 IDENTIFYING DATA: This patient is a 38-year-old female coming from [facility] REASON FOR REFERRAL: Psychiatry was consulted for mental health history HISTORY OF PRESENT ILLNESS: The patient presented to the hospital initially on 02/04 for altered mental status. Patient apparently has a history of seizures. Patient was coming from [facility]. She was positive on her urine drug screen for opiates and benzodiazepines. Patient's blood alcohol level was negative. Ammonia was 14 WBCs were mildly elevated. Patient was seen by neurology for altered mental status and confusion. No EEG has been done however CT scan of her brain was negative. Patient was seen today laying in bed with a sitter at her side. Sitter claims that patient has been trying to pull at her IV lines at times and attempting to get out of bed. Patient was seen laying in bed, her eyes were closed, only followed some commands. She appeared to have very poor attention span only answer some questions. She knew her correct name however believes that she was "42 years old". She did not know her date of does not know today's date. She believes that she was in "[facility]". She appeared to have poor reality testing poor judgment. Poor attention span, was not able to focus on questions. She did not answer several questions about her history. At this time patient denies any suicidal or homical ideations, intent or plan. Patient denies any auditory, visual hallucinations. Patient was not able to answer questions about her substance use history PAST PSYCHIATRIC HISTORY: Patient has a a history of polysubstance abuse. Patient is currently on trazodone as needed. Unable to gather further psychiatric history due to patient's mental status PAST MEDICAL HISTORY: As per medical H&P ALLERGIES: as per EMR. CHEMICAL DEPENDENCY HISTORY: Unable to gather FAMILY PSYCHIATRIC/SUBSTANCE USE HISTORY: Unable to gather SOCIAL HISTORY: Patient is coming from [facility]. Unable to gather further social history MENTAL STATUS EXAM: General Appearance: Patient appears to be laying in bed, eyes closed, stated age is uncooperative, poor attention span. Patient appears to have poor hygiene and grooming wearing hospital gown with poor eye contact. Behavior: Patient is calmly lying in bed without any agitated behavior. Poor attention span, poor eye contact Speech: Patient's speech is hesitant, concrete Mood/Affect: Unable to gather Suicidality/Homicidality: Unable to gather Perceptions: Unable to gather Though content/process: [place], illogical at times. Vague Memory and concentration: AOX1, grossly impaired attention span. Cannot spell "WORLD" backwards Judgment and insight: Poor IMPRESSIONS: Delirium unknown etiology Benzodiazepine use Opiate use PLAN: -At this time patient DOES NOT meet criteria for inpatient psychiatric admission. -Delirium precautions recommended with patient including - avoiding use of narcotics and ANVIL WORKER sedatives, limit anticholinergic medications when possible, frequent re-orientation, minimize use of restraints, open window shades during the day and close them at night -Would recommend the following medication changes/additions: Start melatonin 5 mg nightly for sleep. Haldol liquid 2 mg twice daily for delirium/psychosis -Continue 1:1 sitter for safety -sheet metal worker apprentice to provide patient with outpatient mental health/psychiatry resources for appropriate follow up upon discharge -sheet metal worker apprentice to provide patient substance use treatment resources including AA/NA meetings in the community. -patient will likely be going back to rehab once she is medically cleared. -Communicated plan to patient's nurse -Will continue to follow along as needed -Please contact with any questions. 02/08/24 13:28
[2024-02-08] MEDS: HALOPERIDOL ORAL SOLN 10 MG/5 ML CUP PO SCH (14:32)
[2024-02-08] MEDS: IOPAMIDOL CONTRAST (ORAL USE) VIAL PO PRN (14:32)
[2024-02-08] MEDS: ONDANSETRON 4 MG/2 ML VIAL IVP PRN (14:41)
--- NOTE | 2024-02-08 16:05 | P.PN ---
Subjective Progress Note Date: 02/08/24 I am seeing the patient for the first time during this admission. Please refer to Dr. Zuñiga for further details. Patient is not a great historian but it seems that the patient presented from [facility] on 02/05/2024 for altered mental status. Her urine drug screen was positive for benzo and opiates and patient does state that she is on fentanyl for prolonged period time and she gets the fentanyl from the streets. Initially she stated that she does have a history of seizure and then she stated later she does not have any history of seizure. Objective - Vital Signs Vital signs: Vital Signs Temp 99.6 F 02/08/24 14:00 Pulse 65 02/08/24 14:00 Resp 16 02/08/24 14:00 BP 163/98 02/08/24 14:00 Pulse Ox 97 02/08/24 14:00 FiO2 Intake & Output 02/07/24 02/08/24 02/08/24 18:59 06:59 18:59 Other: Voiding Method Diaper Diaper External Catheter External Catheter # Voids 3 1 1 # Bowel Movements 1 1 - Exam General: Lying in bed and does not appear in acute distress. Neuro: Is dorwsy but is awakeable to voice. She is oriented to self, she correctly states she is in the hospital. She could not tell me the time. She is able to identify simple objects such as pen and phone. She is following simple commands but sometimes I had to repeat them for her to follow the commands. The pupils are round equal reactive to light. No facial weakness. No dysarthria Motor is it is hard to assess individual muscle strength because of her coopera tion/condition but she is able to lift up all extremities above gravity. - Labs CBC & Chem 7: 02/08/24 04:56 02/08/24 04:56 Labs: Abnormal Lab Results - Last 24 Hours (Table) 02/08/24 02/08/24 Range/Units 04:56 04:56 WBC 15.31 H (4.50-10.00) X 10*3/uL Immature Gran # 0.08 H (0.00-0.04) X 10*3/uL Neutrophils # 10.55 H (1.80-7.70) X 10*3/uL Monocytes # 1.29 H (0.20-1.00) X 10*3/uL Eosinophils # 0 L (0.04-0.35) X 10*3/uL Potassium 3.4 L (3.5-5.5) mmol/L Chloride 110 H (96-109) mmol/L BUN/Creatinine Ratio 28.57 H (12.00-20.00) Ratio Glucose 122 H (70-110) mg/dL Assessment and Plan Assessment: This is a 2-year-old woman with a history of seizure who presents to the emergency department from [facility] because of altered mental status. Seems that she may have suffered a seizure at the outlying facility and she takes Keppra at home. She was given a loading dose of Keppra. States that she is on fentanyl and gets drug from the street. Seems that the patient has multiple drug use/abuse including heroin cocaine methamphetamine benzo and opiates. Altered mental status and seems due to toxic encephalopathy History of seizure History of polysubstance abuse Plan: Ordered a routine EEG. TSH, vitamin B12 Patient is on thiamine Is on Keppra 500 mg every 12 hours. Psychiatry is consulted Infection disease is consulted Defer the rest of the medical management to primary and other specialist ADDENDUM: Infection disease specialist reach out to me regarding pursuing lumbar puncture since the patient has elevated white blood cell and fevers of unknown etiology. Consulted pain specialist and ordered the CSF study Time with Patient: Less than 30
--- NOTE | 2024-02-08 17:14 | CT ---
EXAMINATION TYPE: CT abdomen pelvis w con DATE OF EXAM: 02/08/2024 5:01 PM COMPARISON: CT abdomen pelvis most recent from 10/12/2022 CLINICAL INDICATION: Female, 38 years old with history of Fever and vomiting; Fever and vomiting. RN stated patient drank little to no oral contrast when provided. Pt unable to raise arms. TECHNIQUE: Axial CT abdomen pelvis w con;Sagittal and coronal reformats were created on a separate w orkstation. Contrast used:100ml mL of Isovue 300 with IV Contrast, (none if empty) Oral contrast used: with Oral Contrast (none if empty) CT DLP: 695.5 mGycm, Automated exposure control for dose reduction was used. FINDINGS: LOWER CHEST: Unremarkable ABDOMEN LIVER: Unremarkable GALLBLADDER AND BILE DUCTS: The gallbladder is surgically absent. PANCREAS: Unremarkable. SPLEEN: Unremarkable. ADRENAL GLANDS: Unremarkable. KIDNEYS AND URETERS: No evidence of hydronephrosis or renal calculus. The ureters are unremarkable. PELVIS BLADDER: No evidence for wall thickening or mass given limitations of exam. REPRODUCTIVE: Unremarkable. ABDOMEN & PELVIS STOMACH AND BOWEL: No evidence of bowel obstruction. PERITONEUM/RETROPERITONEUM: No evidence of pneumoperitoneum or free fluid. VASCULATURE: No evidence of aortic aneurysm. Prominent vessels in the pelvis with dilated left renal vein. There is narrowing of the left renal vein as it crosses the aorta. MUSCULOSKELETAL: No acute osseous abnormalities LYMPH NODES: No gross evidence for lymphadenopathy. SOFT TISSUE/ABDOMINAL WALL: Right lower quadrant venous catheter possibly secondary to medicine injec tion. IMPRESSION: 1. No evidence for source of infection. No organizing fluid collection. 2. No evidence of pelvic congestion syndrome possibly secondary to certified nutritionist syndrome. [facility], , 02/08/2024 5:12 PM
[2024-02-08] MEDS: MELATONIN 5 MG TABLET PO SCH (20:56)
--- NOTE | 2024-02-09 07:27 | P.CONS ---
History of Present Illness - Reason for Consult Consult date: 02/08/24 Fever elevated white count Requesting physician: Ayan Saini - Chief Complaint Fever x 3 days - History of Present Illness Patient is a 38-year-old female with a past medical history difficult for hypertension urine addiction patient was brought into the hospital 3 days ago for evaluation of mental status changes patient was sent to the ER from [place] with the patient was undergoing rehabilitation for benzo and heroin abuse with initial report to the ER physician concerning for her tongue and face are swollen and there was concern for possible seizure activity or the patient has been evaluated by admitting a neurology services patient on presentation to the hospital did have a low-grade fever of 99.7 and subsequently did have a temperature of 100.8 F last evening patient was not tachycardic hypotensive or hypoxic patient did have white count of 15.31 with a left shift creatinine 0.7 influenza RSV COVID testing negative acute hepatitis panel negative patient did have a negative UA currently being treated with Rocephin for UTI infectious d isease was consulted last evening for fever elevated white count patient at time of evaluation is sleepy lethargic but she did responded to the name she was not able to tell me where she is however denies having a headache nurses aide mention patient did have multiple episode of vomiting last night also having some diarrhea no other information could be obtained from this patient Review of Systems Positive points has been mentioned in HPI complete review could not be obtained because of his underlying mental status Past Medical History Past Medical History: Unable to Obtain, Hypertension Additional Past Medical History / Comment(s): heroin addiction, also cocaine, meth, benzo and opiate abuse; hypotension, left great toe infection History of Any Multi-Drug Resistant Organisms: Unobtainable Past Surgical History: Section Additional Past Surgical History / Comment(s): x 3 Past Anesthesia/Blood Transfusion Reactions: No Reported Reaction Past Psychological History: Unable to Obtain Additional Psychological History / Comment(s): recent admission to [facility] for suicide threats Smoking Status: Unknown if ever smoked Past Alcohol Use History: Unable to Obtain Past Drug Use History: Unable to Obtain Medications and Allergies Home Medications Medication Instructions Recorded Confirmed Type Acetaminophen Tab [Tylenol] 650 mg PO Q4H 02/05/24 02/05/24 History Calcium Phos/D3/Magnesium/Zinc 1 tab PO TID PRN 02/05/24 02/05/24 History [Sxhhuik-Ulw-Xbfj-Vitamin D3] Chlorpheniramine Maleate 4 mg PO Q4H PRN 02/05/24 02/05/24 History [Chlor-Trimeton] Docusate [Colace] 100 mg PO BID PRN 02/05/24 02/05/24 History Hyoscyamine Sulfate [Levsin] 0.125 mg PO QID PRN 02/05/24 02/05/24 History Ibuprofen [Motrin Ib] 600 mg PO Q6H PRN 02/05/24 02/05/24 History Loperamide [Imodium] 4 mg PO QID PRN 02/05/24 02/05/24 History Multivitamins, Thera [Multivitamin 1 tab PO DAILY 02/05/24 02/05/24 History (formulary)] Mylanta 30 ml PO Q4H PRN 02/05/24 02/05/24 History Thiamine [Vitamin B-1] 100 mg PO DAILY 02/05/24 02/05/24 History cloNIDine HCL [Catapres] 0.1 mg PO Q4H PRN 02/05/24 02/05/24 History ondansetron HCL [Zofran] 8 mg PO Q6H PRN 02/05/24 02/05/24 History traZODone HCL [Desyrel] 50 - 150 mg PO HS PRN 02/05/24 02/05/24 History Allergies Allergy/AdvReac Type Severity Reaction Status Date / Time pineapple Allergy Unknown Verified 02/05/24 15:45 Physical Exam Vitals: Vital Signs Temp Pulse Resp BP Pulse Ox 02/08/24 07:00 97.6 F 79 16 145/89 96 02/08/24 02:00 100.3 F H 78 18 159/85 96 02/07/24 21:30 75 02/07/24 19:48 100.8 F H 75 16 171/98 98 02/07/24 17:52 99.7 F H 02/07/24 15:00 100.2 F H 78 17 173/91 96 Intake and Output 02/07/24 02/08/24 02/08/24 22:59 06:59 14:59 Other: Voiding Method Diaper External Catheter External Catheter # Voids 1 1 1 # Bowel Movements 1 1 1 GENERAL DESCRIPTION: Middle-aged female lying in bed, no distress. No tachypnea or accessory muscle of respiration use. HEENT: Shows Pallor , no scleral icterus. Oral mucous membrane is dry. NECK: Trachea central, no thyromegaly. LUNGS: Unlabored breathing. Clear to auscultation anteriorly. No wheeze or crackle. HEART: S1, S2, regular rate and rhythm. No loud murmur ABDOMEN: Soft, no tenderness EXTREMITIES: No edema of feet. SKIN: No rash, no masses palpable. NEUROLOGICAL: The patient is sleepy lethargic orientation could not be determined, some neck rigidity/resistance noticed Results CBC & Chem 7: 02/08/24 04:56 02/08/24 04:56 Labs: Abnormal Lab Results - Last 24 Hours (Table) 02/08/24 02/08/24 Range/Units 04:56 04:56 WBC 15.31 H (4.50-10.00) X 10*3/uL Immature Gran # 0.08 H (0.00-0.04) X 10*3/uL Neutrophils # 10.55 H (1.80-7.70) X 10*3/uL Monocytes # 1.29 H (0.20-1.00) X 10*3/uL Eosinophils # 0 L (0.04-0.35) X 10*3/uL Potassium 3.4 L (3.5-5.5) mmol/L Chloride 110 H (96-109) mmol/L BUN/Creatinine Ratio 28.57 H (12.00-20.00) Ratio Glucose 122 H (70-110) mg/dL Assessment and Plan (1) Fever Current Visit: Yes Status: Acute Code(s): R50.9 - FEVER, UNSPECIFIED SNOMED Code(s): 926439320 (2) Leukocytosis Current Visit: Yes Status: Acute Code(s): D72.829 - ELEVATED WHITE BLOOD CELL COUNT, UNSPECIFIED SNOMED Code(s): 123210101 Plan: 1patient with a fever elevated white count in this patient admitted to hospital with mental status changes patient did have a history of drug use and was undergoing rehabilitation and also give significant history of vomiting with a question of possible GI source versus central etiology clinically doubt UTI help he did have a negative UA chest x-ray was reported negative for acute infiltrate on admission 2-we will check a CT of abdominal pelvis and also discussed with neurology patient will benefit from an LP sending the CSF for Gram stain cell count glucose and protein 3-May continue with empiric Rocephin while waiting for the workup to be completed We will follow on clinical condition and cultures to further adjust medication if needed Thank you for this consultation we will follow the patient along with you Dictation was produced using [employer] dictation software. please excuse any grammatical, word or spelling errors. Time with Patient: Greater than 30
--- NOTE | 2024-02-09 12:35 | P.PCN ---
Date of Procedure: 02/09/24 Procedure(s) Performed: Preoperative diagnosis: 1-altered mental status Post operative diagnoses: 1-altered mental status Procedure= lumbar puncture Anesthesia= local infiltration with lidocaine 1% 3 mL. Condition: stable Complication: none. Description of the procedure procedure risk and benefits discussed with the patient and family, consent signed. Patient and the procedure area placed in sitting position , back prepped with chlorhexidine 3 times been local infiltration of the skin and subcutaneous tissue with lidocaine 1% 3 mL for skin and subcu interstitial frustrations at L4 5 levels then 22-gauge Quincke-type needle advanced slowly at L4- 5 interlaminar space there was positive cerebrospinal fluid which was clear, no heme, no paresthesia ,total of 9 ML of clear cerebrospinal fluid collected in 4 different tubes 2-2-1/2 mL in each, then the needle removed and a Band-Aid applied and patient tolerated the procedure well without any complications.
[2024-02-09 13:34] LABS: Glucose,CSF 58 mg/dL (40-70); Total Protein,CSF 59 mg/dL (12-60)
--- NOTE | 2024-02-09 13:38 | P.PN ---
Subjective Progress Note Date: 02/09/24 38-year-old female was brought in because of her altered consciousness drowsiness admitted for altered mental status believed to have used heroin was found with a powdery substance patient admits to using IV drugs quite lethargic unable to provide much of the history but she states she does not know what she used and patient does have history of IV drug use in the past. EKG showed sinus bradycardia urine drug screen is slightly positive but not impressive for UTI patient admission CBC did not show any leukocytosis but today morning CBC she had mild leukocytosis patient has been nauseous throwing up. Unknown whether patient has a history of hepatitis C neurology evaluated the patient started on Keppra as she missed some doses of Keppra at home patient appears to have toxic encephalopathy patient had a noncontrast CT of the head which is within normal limits. Pupils appropriately reacting to light. February 07, 2024 Patient is alert arousable but eventually does not open her eyes patient continues to have some psychiatric issue I do not believe patient is drowsy although patient is having urinary and bowel incontinence. Patient had a low- grade fever with white count going up. X-ray did not show any abnormality although urine is slightly abnormal patient will be started on Rocephin awaiting urine cultures 02-08-24 Patient seen and examined at bedside. Overnight patient had several episodes of vomiting with loose diarrhea. Tmax overnight 100.8. This morning she was shukri wsy and not answering questions appropriately. WBC increased to 15.31. Blood and urine cultures pending. 02-09-24 Patient seen and examined at bedside. No events overnight. Tmax overnight 100.3. Patient completed lumbar puncture this morning, as patient continues to have fever of unknown etiology. No other complaints seems to have improved mentation and answering questions appropriately. WBC 15.31 is continues to be elevated. Hemoglobin 13.4, sodium 144, potassium 3.4, bicarb 22, glucose 122. Urine culture and blood with no growth to date. She continues on IV Rocephin 2 g daily, IV NS at 50. REVIEW OF SYSTEMS: All other systems are negative except those mentioned in the HPI PHYSICAL EXAMINATION: GENERAL: somnolent and oriented x 3, not in any acute distress. Well developed, well nourished. HEENT: Pupils are round and equally reacting to light. EOMI. No scleral icterus. No conjunctival pallor. Normocephalic, atraumatic. CARDIOVASCULAR: S1 and S2 present. No murmurs, rubs, or gallops. PULMONARY: Chest is clear to auscultation, no wheezing or crackles. ABDOMEN: Soft, suprapubic tenderness, nondistended, normoactive bowel sounds. No palpable organomegaly. MUSCULOSKELETAL: No joint swelling or deformity. EXTREMITIES: No cyanosis, clubbing, or pedal edema. NEUROLOGICAL: Lethargic generalized weakness without any focal weakness SKIN: No rashes. 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 LP completed, cultures pending. -Possibility of urinary tract infection: Continue Rocephin -Leukocytosis possibly due to UTI, LP completed seizure disorder patient was started back on Keppra History of IV drug use panel is negative DVT prophylaxis: Lovenox Objective - Vital Signs Vital signs: Vital Signs Temp 99.0 F 02/09/24 07:26 Pulse 70 02/09/24 07:26 Resp 16 02/09/24 07:26 BP 154/82 02/09/24 07:26 Pulse Ox 98 02/09/24 08:13 FiO2 Intake & Output 02/08/24 02/09/24 02/09/24 18:59 06:59 18:59 Output Total 620 Balance -620 Output: Urine 620 Other: Voiding Method External Catheter External Catheter # Voids 1 1 # Bowel Movements 1 - Labs CBC & Chem 7: 02/08/24 04:56 02/08/24 04:56 Labs: Microbiology - Last 24 Hours (Table) 02/08/24 08:00 Urine Culture - Final Urine,Voided
[2024-02-09 13:48] LABS: Appearance,CSF Blood Tinged
[2024-02-09 13:49] LABS: CSF Tube Number 4; Red Blood Cell,CSF 1045 u/L (0-10)
[2024-02-09 13:52] LABS: Nucleated Cells, CSF 7 u/L (0-5)
[2024-02-09 13:54] LABS: Diff, Total Cells Cnt, CSF 100; Mononuclear WBC,CSF 55 %; Polynuclear WBC,CSF 45 %; Red Blood Cell, CSF Fresh 100 %
--- NOTE | 2024-02-09 14:05 | P.PN ---
Progress Note - Text Progress Note Date: 02/09/24 Interval history: Patient was seen today for psychiatric follow-up. Patient had a lumbar puncture completed, results currently pending. Neurology also ordered a routine EEG which is also pending. Patient continues have a sitter one-to-one at her bedside. Patient was seen today by medical underwriter, she had her eyes closed. She barely answered any questions appropriately. She knew her name and last name. She did not know where she was or today's date. She was mumbling at times, fairly incoherent. She did deny any auditory or visual hallucinations denies any suicidal homicidal ideations intent or plan. She did follow some directions, medical underwriter examined patient's range of motion with her arms to check for any dystonia. MENTAL STATUS EXAM: General Appearance: Patient appears to be laying in bed, eyes closed, stated age is uncooperative, poor attention span, mildly improving. Patient appears to have improving mildly hygiene and grooming wearing hospital gown with eyes closed Behavior: Patient is calmly lying in bed without any agitated behavior. Poor attention span, improving mildly eyes closed Speech: Patient's speech is hesitant, mumbling Mood/Affect: denies any depression, affect is constricted Suicidality/Homicidality: denies Perceptions: denies Though content/process: [place], poverty of content. mumbling. Memory and concentration: AOX1, grossly impaired attention span. Judgment and insight: Poor IMPRESSIONS: Delirium unknown etiology Benzodiazepine use Opiate use PLAN: -At this time patient DOES NOT meet criteria for inpatient psychiatric admission. -Delirium precautions recommended with patient including - avoiding use of narcotics and SUBWAY TRAIN DRIVER sedatives, limit anticholinergic medications when possible, frequent re-orientation, minimize use of restraints, open window shades during the day and close them at night -Would recommend the following medication changes/additions: melatonin 5 mg nightly for sleep. decrease Haldol liquid 1 mg twice daily for delirium/psychosis -mold worker to provide patient with outpatient mental health/psychiatry resources for appropriate follow up upon discharge -mold worker to provide patient substance use treatment resources including AA/NA meetings in the community. -patient will likely be going back to rehab once she is medically cleared and is improving. -await results of MRI and EEG. -Communicated plan to patient's nurse -Will continue to follow along as needed -Please contact with any questions.
--- NOTE | 2024-02-09 15:06 | P.PN ---
Subjective Progress Note Date: 02/09/24 Principal diagnosis: Reason for follow-up is fever Patient is a 38-year-old female with a past medical history difficult for hypertension urine addiction patient was brought into the hospital for evaluation of mental status changes initial concern for possible seizure subsequently did have a fever elevated white count prompted this consultation. On today's evaluation that is 02/09/2024, Patient did have a low-grade fever 100.1 F at 3 AM the patient is afebrile since then patient is more awake and alert comparing to yesterday and denies any headache she notes that she is in the [facility] is supposed to be in the [place] no further nausea vomiting and diarrhea has been reported. Patient did have LP completed today which did shows 1045 RBC 7 WBC however glucose is 58 normal protein is normal at 59 she did have abdominal pelvis CT completed yesterday did not show any acute intra-abdominal pathology Objective - Vital Signs Vital signs: Vital Signs Temp 99.0 F 02/09/24 07:26 Pulse 70 02/09/24 07:26 Resp 16 02/09/24 07:26 BP 154/82 02/09/24 07:26 Pulse Ox 98 02/09/24 08:13 FiO2 Intake & Output 02/08/24 02/09/24 02/09/24 18:59 06:59 18:59 Output Total 620 Balance -620 Output: Urine 620 Other: Voiding Method External Catheter External Catheter # Voids 1 1 # Bowel Movements 1 - Exam GENERAL DESCRIPTION: Middle-age female up in bed in no distress RESPIRATORY SYSTEM: Unlabored breathing , decreased breath sounds at bases HEART: S1 S2 regular rate and rhythm , ABDOMEN: Soft , no tenderness EXTREMITIES: No edema feet - Labs CBC & Chem 7: 02/08/24 04:56 02/08/24 04:56 Assessment and Plan (1) Fever Current Visit: Yes Status: Acute Code(s): R50.9 - FEVER, UNSPECIFIED SNOMED Code(s): 012173396 (2) Leukocytosis Current Visit: Yes Status: Acute Code(s): D72.829 - ELEVATED WHITE BLOOD CE LL COUNT, UNSPECIFIED SNOMED Code(s): 638360970 Plan: 1patient with a fever elevated white count in this patient admitted to hospital with mental status changes patient did have a history of drug use and was undergoing rehabilitation and also give significant history of vomiting with a question of possible GI source versus central etiology clinically doubt UTI help he did have a negative UA chest x-ray was reported negative for acute infiltrate on admission 2-patient did have CT of abdominal pelvis did not show any acute abnormality, t he patient also have LP completed which is traumatic did shows 7 WBC however did have a normal glucose and protein we will make encephalitis less likely 3-May continue with empiric Rocephin we will repeat CBC, CRP with a.m. lab Dictation was produced using [employer] dictation software. please excuse any grammatical, word or spelling errors. Time with Patient: Less than 30
--- NOTE | 2024-02-09 15:16 | P.PN ---
Subjective Progress Note Date: 02/09/24 I am following up with the patient and today she had a lumbar puncture and pending result. She continues to be confused but it seems today she seems minimally better. Patient denies of any headache. Patient had low-grade fever overnight. Objective - Vital Signs Vital signs: Vital Signs Temp 99.4 F 02/09/24 13:17 Pulse 67 02/09/24 13:17 Resp 15 02/09/24 13:17 BP 154/75 02/09/24 13:17 Pulse Ox 99 02/09/24 13:17 FiO2 Intake & Output 02/08/24 02/09/24 02/09/24 18:59 06:59 18:59 Output Total 620 Balance -620 Output: Urine 620 Other: Voiding Method External Catheter External Catheter External Catheter # Voids 1 1 2 # Bowel Movements 1 1 - Exam General: Lying in bed and does not appear in acute distress. Neuro: Is drowsy but is awakeable to voice. She is oriented to self, place and time. She is following simple commands. The pupils are round equal reactive to light. No facial weakness. No dysarthria Motor is it is hard to assess individual muscle strength because of her cooperation/condition but she is able to lift up all extremities above gravity. - Labs CBC & Chem 7: 02/08/24 04:56 02/08/24 04:56 Labs: Abnormal Lab Results - Last 24 Hours (Table) 02/08/24 02/09/24 Range/Units 04:56 11:49 TSH 0.213 L (0.350-5.500) UIU/ML CSF RBC 1045 H (0-10) u/L CSF Tot Nucleated Cells 7 H* (0-5) u/L Microbiology - Last 24 Hours (Table) 02/07/24 20:08 Blood Culture - Preliminary Blood 02/08/24 08:00 Urine Culture - Final Urine,Voided Assessment and Plan Assessment: This is a 2-year-old woman with a history of seizure who presents to the emergency department from [place] because of altered mental status. Seems that she may have suffered a seizure at the outlying facility and she takes Keppra at home. She was given a loading dose of Keppra. States that she is on fentanyl and gets drug from the street. Seems that the patient has multiple drug use/abuse including heroin cocaine methamphetamine benzo and opiates. Altered mental status and seems due to toxic encephalopathy. There is a concern of septic encephalopathy since the patient has low-grade pyrexia and leukocytosis of unknown source--mentation is improving today compared to yesterday History of seizure History of polysubstance abuse Plan: Pending routine EEG. Patient had lumbar puncture completed earlier today for patient including result. ID is on board. Is on ceftriaxone 2 g every 24 hours per the primary team. Will defer m odification of antibiotic to infection disease specialist. Patient is on thiamine Is on Keppra 500 mg every 12 hours. Psychiatry is consulted Infection disease is consulted Defer the rest of the medical management to primary and other specialist Plan discussed with the patient nurse. Time with Patient: Less than 30
[2024-02-09] MEDS: HALOPERIDOL ORAL SOLN 10 MG/5 ML CUP PO SCH (20:29)
--- NOTE | 2024-02-10 02:31 | EEG ---
ELECTROENCEPHALOGRAM REPORT CLINICAL HISTORY: This is a 38-year-old woman with history of seizure with altered mental status. The video EEG is obtained to evaluate for seizure epileptiform activity. RELEVANT MEDICATION: Keppra and Haldol. EEG TYPE: A routine 21-channel EEG with video using the 10/20 electrode placement system. DESCRIPTION: Wakefulness is only obtained. During awake state, the posterior-dominant rhythm consists of [id number] voltage of 9 to 9.5 hertz activity that is well modulated. There is no physiological stage 2 sleep architecture. There is no focal slowing. Interictal and ictal in the left temporal region seems sharply contoured. Otherwise, no clear epileptiform discharge or seizure on the EEG. ACTIVATION PROCEDURE: Photic stimulation did not evoke a posterior driving response. There is no abnormality during the photic stimulation. Hyperventilation is not performed. CLINICAL INTERPRETATION: This is a normal routine EEG during awake state. There is no clear epileptiform discharge or seizure on the EEG. Clinical correlation is recommended. MMCECIL / RIANAN: [id number] /
[2024-02-10 08:26] LABS: Basophils # (A) 0.02 X 10*3/uL (0.00-0.10); Basophils % (A) 0.2 %; Eosinophils # (A) 0.01 X 10*3/uL (0.04-0.35); Eosinophils % (A) 0.1 %; HCT 33.8 % (37.2-46.3); HGB 11.9 g/dL (12.0-15.0); Lymphocytes # (A) 3.12 X 10*3/uL (0.90-5.00); Lymphocytes % (A) 28.7 %; MCH 29.8 pg (27.0-32.0); MCHC 35.2 g/dL (32.0-37.0); MCV 84.5 FL (80.0-97.0); Mean Platelet Volume 10.5 FL (9.5-12.2); Monocytes # (A) 0.59 X 10*3/uL (0.20-1.00); Monocytes % (A) 5.4 %; NRBC Per 100 WBC 0 X 10*3/uL (0.00-0.01); Neutrophils # (A) 7.04 X 10*3/uL (1.80-7.70); Neutrophils % (A) 64.8 %; Platelet Count 291 X 10*3/uL (140-440); WBC 10.87 X 10*3/uL (4.50-10.00)
[2024-02-10 08:56] LABS: BUN/Creat Ratio 31.83 Ratio (12.00-20.00); Blood Urea Nitrogen 19.1 mg/dL (9.0-27.0); C Reactive Protein <0.30 mg/dL (0.00-0.80); Calcium 8.5 mg/dL (8.7-10.3); Chloride 110 mmol/L (96-109); Glucose 114 mg/dL (70-110); Potassium 3.1 mmol/L (3.5-5.5); Sodium 142 mmol/L (135-145)
[2024-02-10] MEDS: POTASSIUM CHLORIDE ER 20 MEQ TAB.ER PO STA ×2 (10:32→14:32)
[2024-02-10] MEDS: POTASSIUM CHLORIDE 20 MEQ in WATER FOR INJECTION 1 100ML.BAG IVPB STA (11:22)
--- NOTE | 2024-02-10 16:59 | P.PN ---
Subjective Progress Note Date: 02/10/24 38-year-old female was brought in because of her altered consciousness drowsiness admitted for altered mental status believed to have used heroin was found with a powdery substance patient admits to using IV drugs quite lethargic unable to provide much of the history but she states she does not know what she used and patient does have history of IV drug use in the past. EKG showed sinus bradycardia urine drug screen is slightly positive but not impressive for UTI patient admission CBC did not show any leukocytosis but today morning CBC she had mild leukocytosis patient has been nauseous throwing up. Unknown whether patient has a history of hepatitis C neurology evaluated the patient started on Keppra as she missed some doses of Keppra at home patient appears to have toxic encephalopathy patient had a noncontrast CT of the head which is within normal limits. Pupils appropriately reacting to light. February 07, 2024 Patient is alert arousable but eventually does not open her eyes patient continues to have some psychiatric issue I do not believe patient is drowsy although patient is having urinary and bowel incontinence. Patient had a low- grade fever with white count going up. X-ray did not show any abnormality although urine is slightly abnormal patient will be started on Rocephin awaiting urine cultures 02-08-24 Patient seen and examined at bedside. Overnight patient had several episodes of vomiting with loose diarrhea. Tmax overnight 100.8. This morning she was shukri wsy and not answering questions appropriately. WBC increased to 15.31. Blood and urine cultures pending. 02-09-24 Patient seen and examined at bedside. No events overnight. Tmax overnight 100.3. Patient completed lumbar puncture this morning, as patient continues to have fever of unknown etiology. No other complaints seems to have improved mentation and answering questions appropriately. WBC 15.31 is continues to be elevated. Hemoglobin 13.4, sodium 144, potassium 3.4, bicarb 22, glucose 122. Urine culture and blood with no growth to date. She continues on IV Rocephin 2 g daily, IV NS at 50. 02-10-2024 Patient seen and examined at bedside. Patient reported to have diarrhea overnight. Tmax overnight 100.0 Her mentation continues to improve. She states she has an appetite however reported she has not eaten well. Current antibiotic Rocephin. Labs WBC 10.87, hemoglobin 11.9, sodium 142, potassium 3.1, bicarb 18, gap 14, BUN 19.1, creatinine 0.6, glucose 114, CRP negative, repeat procalcitonin 0.04. REVIEW OF SYSTEMS: All other systems are negative except those mentioned in the HPI PHYSICAL EXAMINATION: GENERAL: somnolent and oriented x 3, not in any acute distress. Well developed, well nourished. HEENT: Pupils are round and equally reacting to light. EOMI. No scleral icterus. No conjunctival pallor. Normocephalic, atraumatic. CARDIOVASCULAR: S1 and S2 present. No murmurs, rubs, or gallops. PULMONARY: Chest is clear to auscultation, no wheezing or crackles. ABDOMEN: Soft, suprapubic tenderness, nondistended, normoactive bowel sounds. No palpable organomegaly. MUSCULOSKELETAL: No joint swelling or deformity. EXTREMITIES: No cyanosis, clubbing, or pedal edema. NEUROLOGICAL: Lethargic generalized weakness without any focal weakness SKIN: No rashes. 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 -Possibility of urinary tract infection: Continue Rocephin -Leukocytosis possibly due to UTI, LP which was traumatic shows 1045 RBC, 7 total nucleated cells, CSF with no organisms seen seizure disorder patient was started back on Keppra Hypokalemia today potassium 3.1, given 100 mEq of KCl History of IV drug use panel is negative DVT prophylaxis: Lovenox Objective - Vital Signs Vital signs: Vital Signs Temp 98.0 F 02/10/24 14:00 Pulse 61 02/10/24 14:00 Resp 16 02/10/24 14:00 BP 162/89 02/10/24 14:00 Pulse Ox 100 02/10/24 14:00 FiO2 Intake & Output 02/09/24 02/10/24 02/10/24 18:59 06:59 18:59 Intake Total 90 Output Total 75 Balance -75 90 Intake: Oral 90 Output: Urine 75 Other: Voiding Method External Catheter External Catheter External Catheter # Voids 2 3 2 # Bowel Movements 1 1 - Labs CBC & Chem 7: 02/10/24 04:09 02/10/24 04:09 Labs: Abnormal Lab Results - Last 24 Hours (Table) 02/10/24 02/10/24 Range/Units 04:09 04:09 WBC 10.87 H (4.50-10.00) X 10*3/uL RBC 4.00 L (4.10-5.20) X 10*6/uL Hgb 11.9 L (12.0-15.0) g/dL Hct 33.8 L (37.2-46.3) % Immature Gran # 0.09 H (0.00-0.04) X 10*3/uL Eosinophils # 0.01 L (0.04-0.35) X 10*3/uL Potassium 3.1 L (3.5-5.5) mmol/L Chloride 110 H (96-109) mmol/L Carbon Dioxide 18.0 L (21.6-31.8) mmol/L Anion Gap 14.00 H (4.00-12.00) mmol/L BUN/Creatinine Ratio 31.83 H (12.00-20.00) Ratio Glucose 114 H (70-110) mg/dL Calcium 8.5 L (8.7-10.3) mg/dL Microbiology - Last 24 Hours (Table) 02/07/24 20:08 Blood Culture - Preliminary Blood 02/09/24 11:49 CSF Gram Stain - Preliminary Cerebral Spinal Fluid CSF Culture - Preliminary
--- NOTE | 2024-02-10 17:03 | P.PN ---
Subjective Progress Note Date: 02/10/24 I am following up with the patient and she feels she is doing better. The sitter was at bedside she is cooperating appropriately. Patient had a lumbar puncture today and it was traumatic in which the red blood cell was 1045 and total nucleated cell was 7 with a correction nucleated cells would be 5, considered normal. Normal is 0-5. Objective - Vital Signs Vital signs: Vital Signs Temp 98.0 F 02/10/24 14:00 Pulse 61 02/10/24 14:00 Resp 16 02/10/24 14:00 BP 162/89 02/10/24 14:00 Pulse Ox 100 02/10/24 14:00 FiO2 Intake & Output 02/09/24 02/10/24 02/10/24 18:59 06:59 18:59 Intake Total 90 Output Total 75 Balance -75 90 Intake: Oral 90 Output: Urine 75 Other: Voiding Method External Catheter External Catheter External Catheter # Voids 2 3 2 # Bowel Movements 1 1 - Exam General: Lying in bed and does not appear in acute distress. Neuro: Patient is more awake today and more responsive and answer questions more briskly compared to her initial presentation. She is oriented to self place and time. Is following simple commands. The pupils are round equal reactive to light. No facial weakness. No dysa rthria Motor: Is lifting extremities above gravity equally. - Labs CBC & Chem 7: 02/10/24 04:09 02/10/24 04:09 Labs: Abnormal Lab Results - Last 24 Hours (Table) 02/10/24 02/10/24 Range/Units 04:09 04:09 WBC 10.87 H (4.50-10.00) X 10*3/uL RBC 4.00 L (4.10-5.20) X 10*6/uL Hgb 11.9 L (12.0-15.0) g/dL Hct 33.8 L (37.2-46.3) % Immature Gran # 0.09 H (0.00-0.04) X 10*3/uL Eosinophils # 0.01 L (0.04-0.35) X 10*3/uL Potassium 3.1 L (3.5-5.5) mmol/L Chloride 110 H (96-109) mmol/L Carbon Dioxide 18.0 L (21.6-31.8) mmol/L Anion Gap 14.00 H (4.00-12.00) mmol/L BUN/Creatinine Ratio 31.83 H (12.00-20.00) Ratio Glucose 114 H (70-110) mg/dL Calcium 8.5 L (8.7-10.3) mg/dL Microbiology - Last 24 Hours (Table) 02/07/24 20:08 Blood Culture - Preliminary Blood 02/09/24 11:49 CSF Gram Stain - Preliminary Cerebral Spinal Fluid CSF Culture - Preliminary Assessment and Plan Assessment: This is a 2-year-old woman with a history of seizure who presents to the emergency department from [place] because of altered mental status. Seems that she may have suffered a seizure at the outlying facility and she takes Keppra at home. She was given a loading dose of Keppra. States that she is on fentanyl and gets drug from the street. Seems that the patient has multiple drug use/abuse including heroin cocaine methamphetamine benzo and opiates. Altered mental status and seems due to toxic encephalopathy. There is a concern of septic encephalopathy since the patient has low-grade pyrexia and leukocytosis of unknown source. CSF study does not seems suggestive of meningoencephalitis--mentation drastically improving History of seizure History of polysubstance abuse Plan: Patient had a lumbar puncture yesterday and it was traumatic in which the red blood cell was 1045 and total nucleated cell was 7 with a correction nucleated cells would be 5, considered normal. Normal is 0-5. Rest of the CSF study is glucose is 58, protein is 59. Dr. Gonzalez, infection disease specialist and he did agree that CSF study was not suggestive of meningeal encephalitis. Routine EEG is normal. ID is on board. Is on ceftriaxone 2 g every 24 hours per the primary team. Will defer modification of antibiotic to infection disease specialist. Patient is on thiamine Is on Keppra 500 mg every 12 hours. Psychiatry is consulted Defer the rest of the medical management to primary and other specialist Plan discussed with the patient and I.D. team. Time with Patient: Less than 30
--- NOTE | 2024-02-10 23:09 | P.PN ---
Subjective Progress Note Date: 02/10/24 Principal diagnosis: Reason for follow-up is fever Patient is a 38-year-old female with a past medical history difficult for hypertension urine addiction patient was brought into the hospital for evaluation of mental status changes initial concern for possible seizure subsequently did have a fever elevated white count prompted this consultation. On today's evaluation that is 02/10/2024,the patient denies any fever or any chills, patient is breathing comfortably on room air, the patient denies chest pain shortness of breath and no significant cough, patient denies abdominal pain, no nausea vomiting or diarrhea. Patient white count is down to 10.87 creatinine 0.6 CSF HSV PCR negative cultures so far negative Objective - Vital Signs Vital signs: Vital Signs Temp 98.2 F 02/10/24 07:40 Pulse 66 02/10/24 07:40 Resp 16 02/10/24 07:40 BP 157/84 02/10/24 07:40 Pulse Ox 96 02/10/24 07:42 FiO2 Intake & Output 02/09/24 02/10/24 02/10/24 18:59 06:59 18:59 Output Total 75 Balance -75 Output: Urine 75 Other: Voiding Method External Catheter External Catheter # Voids 2 3 # Bowel Movements 1 - Exam GENERAL DESCRIPTION: Middle-age female up in bed in no distress RESPIRATORY SYSTEM: Unlabored breathing , decreased breath sounds at bases HEART: S1 S2 regular rate and rhythm , ABDOMEN: Soft , no tenderness EXTREMITIES: No edema feet - Labs CBC & Chem 7: 02/10/24 04:09 02/10/24 04:09 Labs: Abnormal Lab Results - Last 24 Hours (Table) 02/08/24 02/09/24 02/10/24 Range/Units 04:56 11:49 04:09 WBC 10.87 H (4.50-10.00) X 10*3/uL RBC 4.00 L (4.10-5.20) X 10*6/uL Hgb 11.9 L (12.0-15.0) g/dL Hct 33.8 L (37.2-46.3) % Immature Gran # 0.09 H (0.00-0.04) X 10*3/uL Eosinophils # 0.01 L (0.04-0.35) X 10*3/uL Potassium (3.5-5.5) mmol/L Chloride (96-109) mmol/L Carbon Dioxide (21.6-31.8) mmol/L Anion Gap (4.00-12.00) mmol/L BUN/Creatinine Ratio (12.00-20.00) Ratio Glucose (70-110) mg/dL Calcium (8.7-10.3) mg/dL TSH 0.213 L (0.350-5.500) UIU/ML CSF RBC 1045 H (0-10) u/L CSF Tot Nucleated Cells 7 H* (0-5) u/L 02/10/24 Range/Units 04:09 WBC (4.50-10.00) X 10*3/uL RBC (4.10-5.20) X 10*6/uL Hgb (12.0-15.0) g/dL Hct (37.2-46.3) % Immature Gran # (0.00-0.04) X 10*3/uL Eosinophils # (0.04-0.35) X 10*3/uL Potassium 3.1 L (3.5-5.5) mmol/L Chloride 110 H (96-109) mmol/L Carbon Dioxide 18.0 L (21.6-31.8) mmol/L Anion Gap 14.00 H (4.00-12.00) mmol/L BUN/Creatinine Ratio 31.83 H (12.00-20.00) Ratio Glucose 114 H (70-110) mg/dL Calcium 8.5 L (8.7-10.3) mg/dL TSH (0.350-5.500) UIU/ML CSF RBC (0-10) u/L CSF Tot Nucleated Cells (0-5) u/L Microbiology - Last 24 Hours (Table) 02/09/24 11:49 CSF Gram Stain - Preliminary Cerebral Spinal Fluid CSF Culture - Preliminary 02/07/24 20:08 Blood Culture - Preliminary Blood 02/08/24 08:00 Urine Culture - Final Urine,Voided Assessment and Plan (1) Fever Current Visit: Yes Status: Acute Code(s): R50.9 - FEVER, UNSPECIFIED SNOMED Code(s): 453526632 (2) Leukocytosis Current Visit: Yes Status: Acute Code(s): D72.829 - ELEVATED WHITE BLOOD CELL COUNT, UNSPECIFIED SNOMED Code(s): 118784384 Plan: 1patient with a fever elevated white count in this patient admitted to hospital with mental status changes patient did have a history of drug use and was undergoing rehabilitation and also give significant history of vomiting with a question of possible GI source versus central etiology clinically doubt UTI help he did have a negative UA chest x-ray was reported negative for acute infiltrate on admission 2-patient did have CT of abdominal pelvis did not show any acute abnormality, the patient also have LP completed which is traumatic did shows 7 WBC however did have a normal glucose and protein, that will make encephalitis less likely patient did have a negative HSV 1 and 2 DNA by PCR 3-as the patient white count is trending down continue Rocephin and a short course of Ceftin on discharge Dictation was produced using [employer] dictation software. please excuse any grammatical, word or spelling errors.
[2024-02-11 02:42] VITALS: RESP 18
[2024-02-11 09:12] LABS: Basophils # (A) 0.03 X 10*3/uL (0.00-0.10); Basophils % (A) 0.2 %; Eosinophils # (A) 0.32 X 10*3/uL (0.04-0.35); Eosinophils % (A) 2.6 %; HCT 35.3 % (37.2-46.3); HGB 12.3 g/dL (12.0-15.0); Lymphocytes # (A) 4.01 X 10*3/uL (0.90-5.00); Lymphocytes % (A) 32.8 %; MCH 29.5 pg (27.0-32.0); MCHC 34.8 g/dL (32.0-37.0); MCV 84.7 FL (80.0-97.0); Mean Platelet Volume 10.9 FL (9.5-12.2); Monocytes # (A) 0.71 X 10*3/uL (0.20-1.00); Monocytes % (A) 5.8 %; NRBC Per 100 WBC 0 X 10*3/uL (0.00-0.01); Neutrophils # (A) 7.08 X 10*3/uL (1.80-7.70); Platelet Count 322 X 10*3/uL (140-440); RBC 4.17 X 10*6/uL (4.10-5.20); RDW 12.4 % (11.5-14.5); WBC 12.22 X 10*3/uL (4.50-10.00)
[2024-02-11 09:20] LABS: Blood Urea Nitrogen 10.4 mg/dL (9.0-27.0); Calcium 8.3 mg/dL (8.7-10.3); Chloride 110 mmol/L (96-109); Glucose 96 mg/dL (70-110); Potassium 3.8 mmol/L (3.5-5.5); Sodium 140 mmol/L (135-145)
[2024-02-11 12:25] LABS: West Nile Virus IgM Antibody <0.01 INDEX (<0.90)
[2024-02-11 13:08] VITALS: BP 138/84; PULSE 58; TEMP 98.2
--- NOTE | 2024-02-11 15:42 | P.PN ---
Subjective Progress Note Date: 02/11/24 Principal diagnosis: Reason for follow-up is fever Patient is a 38-year-old female with a past medical history difficult for hypertension urine addiction patient was brought into the hospital for evaluation of mental status changes initial concern for possible seizure subsequently did have a fever elevated white count prompted this consultation. On today's evaluation that is 02/11/2024,the patient remains to be afebrile, patient is on room air not requiring supplemental oxygen and denies any shortness of breath no chest pain or cough.Patient denies having any nausea or vomiting, no abdominal pain and no diarrhea has been reported mention feeling better. Patient white count is 12.22, creatinine 0.5 Objective - Vital Signs Vital signs: Vital Signs Temp 98.3 F 02/11/24 07:08 Pulse 60 02/11/24 07:08 Resp 18 02/11/24 07:08 BP 142/75 02/11/24 07:08 Pulse Ox 99 02/11/24 07:08 FiO2 Intake & Output 02/10/24 02/11/24 02/11/24 18:59 06:59 18:59 Intake Total 90 480 Balance 90 480 Intake: Oral 90 480 Other: Voiding Method External Catheter External Catheter External Catheter # Voids 1 3 # Bowel Movements 1 3 - Exam GENERAL DESCRIPTION: Middle-age female up in bed in no distress RESPIRATORY SYSTEM: Unlabored breathing , decreased breath sounds at bases HEART: S1 S2 regular rate and rhythm , ABDOMEN: Soft , no tenderness EXTREMITIES: No edema feet - Labs CBC & Chem 7: 02/11/24 03:48 02/11/24 03:48 Labs: Abnormal Lab Results - Last 24 Hours (Table) 02/11/24 02/11/24 Range/Units 03:48 03:48 WBC 12.22 H (4.50-10.00) X 10*3/uL Hct 35.3 L (37.2-46.3) % Immature Gran # 0.07 H (0.00-0.04) X 10*3/uL Chloride 110 H (96-109) mmol/L Carbon Dioxide 19.0 L (21.6-31.8) mmol/L Creatinine 0.5 L (0.6-1.5) mg/dL BUN/Creatinine Ratio 20.80 H (12.00-20.00) Ratio Calcium 8.3 L (8.7-10.3) mg/dL Microbiology - Last 24 Hours (Table) 02/09/24 11:49 CSF Gram Stain - Preliminary Cerebral Spinal Fluid CSF Culture - Preliminary 02/07/24 20:08 Blood Culture - Preliminary Blood Assessment and Plan (1) Fever Current Visit: Yes Status: Acute Code(s): R50.9 - FEVER, UNSPECIFIED SNOMED Code(s): 016621275 (2) Leukocytosis Current Visit: Yes Status: Acute Code(s): D72.829 - ELEVATED WHITE BLOOD CELL COUNT, UNSPECIFIED SNOMED Code(s): 688264514 Plan: 1patient with a fever elevated white count in this patient admitted to hospital with mental status changes patient did have a history of drug use and was undergoing rehabilitation and also give significant history of vomiting with a question of possible GI source versus central etiology clinically doubt UTI help he did have a negative UA chest x-ray was reported negative for acute infiltrate on admission 2-patient did have CT of abdominal pelvis did not show any acute abnormality, the patient also have LP completed which is traumatic did shows 7 WBC however did have a normal glucose and protein, that will make encephalitis less likely patient did have a negative HSV 1 and 2 DNA by PCR 3-patient did have resolution of her fever and has shown clinical improvement on Rocephin we will consider 5-day course of oral Ceftin on discharge 500 mg twice daily discussed with the resident physician Dictation was produced using [employer] dictation software. please excuse any grammatical, word or spelling errors.
--- NOTE | 2024-02-11 16:43 | P.DS ---
Providers Date of admission: 02/05/24 15:08 Expected date of discharge: 02/11/24 Attending physician: Luis Miguel Martino Consults: 02/05/24 15:06 Consult Physician Routine Consulting Provider: River Zuñiga Consult Reason/Comments: altered mental status Do you want consulting provider notified?: Yes 02/07/24 11:47 Consult Physician Routine Consulting Provider: Jelani Garcia Consult Reason/Comments: Unspecified Mental Health History Do you want consulting provider notified?: Yes 02/07/24 20:11 Consult Physician Routine Consulting Provider: Lacy Main Consult Reason/Comments: elevated temperature, WBC Do you want consulting provider notified?: Yes, Notify in am Primary care physician: Physician Nonstaff Hospital Course: Discharge diagnoses; #Altered mental status, toxic encephalopathy secondary to drug abuse #Leukocytosis #seizure disorder #Hypokalemia #History of IV drug use Hospital course; She is discharged in stable condition to [facility]. She does continue to have leukocytosis on discharge but fevers have seemed to have subsided for now. She will continue Ceftin 500 mg p.o. twice daily for 5 days. She is to follow- up with her PCP. HPI 38-year-old female was brought in because of her altered consciousness drowsiness admitted for altered mental status believed to have used heroin was found with a powdery substance patient admits to using IV drugs quite lethargic unable to provide much of the history but she states she does not know what she used and patient does have history of IV drug use in the past. EKG showed sinus bradycardia urine drug screen is slightly positive but not impressive for UTI patient admission CBC did not show any leukocytosis but today morning CBC she had mild leukocytosis patient has been nauseous throwing up. Unknown whether patient has a history of hepatitis C neurology evaluated the patient started on Keppra as she missed some doses of Keppra at home patient appears to have toxic encephalopathy patient had a noncontrast CT of the head which is within normal limits. Pupils appropriately reacting to light. During hospital stay she was treated for altered mental status due to toxic encephalopathy, with fevers and leukocytosis. During stay she had initially poor mentation but showed clinical improvement. She also continued to fevers each night and leukocytosis. She was followed closely by infectious disease physician during stay. She was treated for possible UTI, and continued suprapubic tenderness with Rocephin. Chest x-ray, lumbar puncture and further lab workup were nonrevealing for source of infection. Viral workup was also negative for HSV. PHYSICAL EXAMINATION: GENERAL: somnolent and oriented x 3, not in any acute distress. Well developed, well nourished. HEENT: Pupils are round and equally reacting to light. EOMI. No scleral icterus. No conjunctival pallor. Normocephalic, atraumatic. CARDIOVASCULAR: S1 and S2 present. No murmurs, rubs, or gallops. PULMONARY: Chest is clear to auscultation, no wheezing or crackles. ABDOMEN: Soft, suprapubic tenderness, nondistended, normoactive bowel sounds. No palpable organomegaly. MUSCULOSKELETAL: No joint swelling or deformity. EXTREMITIES: No cyanosis, clubbing, or pedal edema. NEUROLOGICAL: Lethargic generalized weakness without any focal weakness SKIN: No rashes. Dictation was produced using make[employer] dictation software. please excuse any grammatical, word or spelling errors. Patient Condition at Discharge: Stable Plan - Discharge Summary Discharge Rx Participant: No New Discharge Prescriptions: New cefuroxime axetiL [Ceftin] 500 mg PO BID #10 tab Continue Thiamine [Vitamin B-1] 100 mg PO DAILY Chlorpheniramine Maleate [Chlor-Trimeton] 4 mg PO Q4H PRN PRN Reason: Allergy Symptoms Mylanta 30 ml PO Q4H PRN PRN Reason: Gi Upset Multivitamins, Thera [Multivitamin (formulary)] 1 tab PO DAILY Hyoscyamine Sulfate [Levsin] 0.125 mg PO QID PRN PRN Reason: Gi Upset cloNIDine HCL [Catapres] 0.1 mg PO Q4H PRN PRN Reason: Anxiety Loperamide [Imodium] 4 mg PO QID PRN PRN Reason: Diarrhea traZODone HCL [Desyrel] 50 - 150 mg PO HS PRN PRN Reason: Insomnia ondansetron HCL [Zofran] 8 mg PO Q6H PRN PRN Reason: Nausea Acetaminophen Tab [Tylenol] 650 mg PO Q4H Ibuprofen [Motrin Ib] 600 mg PO Q6H PRN PRN Reason: Pain Docusate [Colace] 100 mg PO BID PRN PRN Reason: Constipation Calcium Phos/D3/Magnesium/Zinc [Jfodwgb-Nau-Mrhx-Vitamin D3] 1 tab PO TID PRN PRN Reason: muscle cramps Discharge Medication List Acetaminophen Tab [Tylenol] 650 mg PO Q4H 02/05/24 [History] Calcium Phos/D3/Magnesium/Zinc [Cswxlyw-Uuq-Ofks-Vitamin D3] 1 tab PO TID PRN 02/05/24 [History] Chlorpheniramine Maleate [Chlor-Trimeton] 4 mg PO Q4H PRN 02/05/24 [History] Docusate [Colace] 100 mg PO BID PRN 02/05/24 [History] Hyoscyamine Sulfate [Levsin] 0.125 mg PO QID PRN 02/05/24 [History] Ibuprofen [Motrin Ib] 600 mg PO Q6H PRN 02/05/24 [History] Loperamide [Imodium] 4 mg PO QID PRN 02/05/24 [History] Multivitamins, Thera [Multivitamin (formulary)] 1 tab PO DAILY 02/05/24 [History] Mylanta 30 ml PO Q4H PRN 02/05/24 [History] Thiamine [Vitamin B-1] 100 mg PO DAILY 02/05/24 [History] cloNIDine HCL [Catapres] 0.1 mg PO Q4H PRN 02/05/24 [History] ondansetron HCL [Zofran] 8 mg PO Q6H PRN 02/05/24 [History] traZODone HCL [Desyrel] 50 - 150 mg PO HS PRN 02/05/24 [History] cefuroxime axetiL [Ceftin] 500 mg PO BID #10 tab 02/11/24 [Rx] Follow up Appointment(s)/Referral(s): Nonstaff,Physician [Primary Care Provider] - 1-2 days Patient Instructions/Handouts: Seizure/Epilepsy Discharge Instructions & Follow-Up Discharge/Stand Alone Forms: AA Meetings & 24 - [facility], AA Meetings [facility], Who Do I Call?, Community Resources, Outpatient Counseling, Inp Substance Abuse Facilities, Area PCPs Discharge Disposition: TRANSFER TO SNF/ECF
--- NOTE | 2024-02-11 18:22 | P.PN ---
Subjective Progress Note Date: 02/11/24 I am following up with the patient and patient states that she is having recurrent diarrhea. No further fevers since 02/09/2024. Patient denies of any headache, focal weakness. No further episodes of confusion Objective - Vital Signs Vital signs: Vital Signs Temp 98.2 F 02/11/24 12:29 Pulse 58 L 02/11/24 12:29 Resp 18 02/11/24 12:29 BP 138/84 02/11/24 12:29 Pulse Ox 100 02/11/24 12:29 FiO2 Intake & Output 02/10/24 02/11/24 02/11/24 18:59 06:59 18:59 Intake Total 90 480 Balance 90 480 Intake: Oral 90 480 Other: Voiding Method External Catheter External Catheter External Catheter # Voids 1 3 2 # Bowel Movements 1 3 1 - Exam General: Lying in bed and does not appear in acute distress. Neuro: Patient is more awake today and more responsive and answer questions more briskly compared to her initial presentation. She is oriented to self place and time. Is following simple commands. The pupils are round equal reactive to light. No facial weakness. No dysarthria Motor: Is lifting extremities above gravity equally. - Labs CBC & Chem 7: 02/11/24 03:48 02/11/24 03:48 Labs: Abnormal Lab Results - Last 24 Hours (Table) 02/11/24 02/11/24 Range/Units 03:48 03:48 WBC 12.22 H (4.50-10.00) X 10*3/uL Hct 35.3 L (37.2-46.3) % Immature Gran # 0.07 H (0.00-0.04) X 10*3/uL Chloride 110 H (96-109) mmol/L Carbon Dioxide 19.0 L (21.6-31.8) mmol/L Creatinine 0.5 L (0.6-1.5) mg/dL BUN/Creatinine Ratio 20.80 H (12.00-20.00) Ratio Calcium 8.3 L (8.7-10.3) mg/dL Microbiology - Last 24 Hours (Table) 02/07/24 20:08 Blood Culture - Preliminary Blood 02/09/24 11:49 CSF Gram Stain - Preliminary Cerebral Spinal Fluid CSF Culture - Preliminary Assessment and Plan Assessment: This is a 2-year-old woman with a history of seizure who presents to the emergency department from [facility] because of altered mental status. Seems that she may have suffered a seizure at the outlying facility and she takes Keppra at home. She was given a loading dose of Keppra. States that she is on fentanyl and gets drug from the street. Seems that the patient has multiple drug use/abuse including heroin cocaine methamphetamine benzo and opiates. Altered mental status and seems due to toxic encephalopathy. There is a concern of septic encephalopathy since the patient has low-grade pyrexia and leukocytosis of unknown source. CSF study does not seems suggestive of meningoencephalitis--mentation drastically improving Diarrhea possibly due to antibiotic induced History of seizure History of polysubstance abuse Plan: Patient had a lumbar puncture during this admission and it was traumatic in which the red blood cell was 1045 and total nucleated cell was 7 with a correction nucleated cells would be 5, considered normal. Normal is 0-5. Rest of the CSF study is glucose is 58, protein is 59. Dr. Gonzalez, infection disease specialist and he did agree that CSF study was not suggestive of meningeal encephalitis. Routine EEG is normal. ID is on board. Is on ceftriaxone 2 g every 24 hours per the primary team. Will defer modification of antibiotic to infection disease specialist. Patient is on thiamine Is on Keppra 500 mg every 12 hours. Psychiatry is consulted Defer the rest of the medical management to primary and other specialist Plan discussed with the patient There is no further neurological work-up. Time with Patient: Less than 30
== END 2024-02-11 18:44 | disposition other institution (70) | DRG 92 ==
LOC: EC 11:58 → SUPCPDRO 11:58 → 6NMEDSUR 15:07 → OBSVTOIN 15:08 → 6NMEDSUR 20:51 → 5NMEDONC 02-11 06:46
PROVIDERS: ADMIT Internal Medicine; ATTEND Internal Medicine
PROC: 009U3ZX Drainage of Spinal Canal, Percutaneous Approach, Diagnostic (ICD-10-PCS; principal; 2024-02-09 15:00)
DX: G92.8 Other toxic encephalopathy (principal); F11.121 Opioid abuse with intoxication delirium; N39.0 Urinary tract infection, site not specified; T50.905A Adverse effect of unspecified drugs, medicaments and biological substances, initial encounter; G40.909 Epilepsy, unspecified, not intractable, without status epilepticus; F13.10 Sedative, hypnotic or anxiolytic abuse, uncomplicated; E87.6 Hypokalemia; R00.1 Bradycardia, unspecified; Z20.822 Contact with and (suspected) exposure to COVID-19; Z71.51 Drug abuse counseling and surveillance of drug abuser; N94.6 Dysmenorrhea, unspecified; Z79.899 Other long term (current) drug therapy; I95.9 Hypotension, unspecified; R15.9 Full incontinence of feces; R32 Unspecified urinary incontinence; R19.7 Diarrhea, unspecified
CPT/HCPCS: 36415; 62270; 70450; 71046; 74177; 80048; 80053; 80074; 80143; 80179; 80306; 80320; 81001; 82140; 82607; 82945; 83605; 83735; 83873; 84145; 84157; 84439; 84443; 85025; 85027; 85610; 85730; 86140; 86788; 86789; 87040; 87070; 87086; 87205; 87529; 87636; 88108; 89050; 93005; 94760; 95816; 96361; 96374; 96375; 96376; 99285